=== PATIENT | male | born 1970 | race Caucasian/White ===

== ENCOUNTER → 2022-01-11 | Outpatient (CLI) | payer OTHER ==
--- NOTE | 2022-01-12 05:22 | MR ---
EXAMINATION TYPE: MR pelvis wo/w con DATE OF EXAM: 01/11/2022 COMPARISON: None HISTORY: Left seminal vesical mass. CONTRAST: Standard multiplanar, multisequence MRI departmental protocol images were obtained without contrast a nd with 11 mL intravenous Gadavist gadolinium contrast. Urinary bladder is almost empty. No free fluid in the pelvis. Prostate gland measures 5.1 cm with no discrete mass. There is a conglomeration of cysts in the pelvis on the left side adjacent to the left side of the pr ostate gland that overall measures 5.4 x 7.6 cm. This is at the left-sided seminal vesicles. Seminal vesicles on the right side appear normal and measure 2.2 cm in greatest dimension. No evidence of inguinal hernia. The bony pelvis is intact. Sacrum and coccyx appear normal. Sacroilia c joints appear normal. The proximal femurs and hip joints appear normal. Left and right side vas def erens is visualized and have normal diameter. IMPRESSION: Numerous thin wall enlarged cysts involving the left-sided seminal vesicles. There is conglomeration of cysts. No evidence of any solid component.
== END | disposition home or self-care (01) ==
LOC: RADMRIMAIN 17:33
PROVIDERS: ATTEND Urology
DX: N50.89 Other specified disorders of the male genital organs (principal)
CPT/HCPCS: 72197; A9585

== ENCOUNTER → 2022-03-20 | Outpatient (CLI) | payer OTHER ==
[2022-03-20 22:52] LABS: Basophils # (A) 0.07 X 10*3/uL (0.00-0.10); Basophils % (A) 0.8 %; Eosinophils # (A) 0.09 X 10*3/uL (0.04-0.35); Eosinophils % (A) 1.1 %; HCT 48.5 % (39.6-50.0); HGB 16.6 g/dL (13.0-17.0); Immature Grans, Automated 0.2 %; Lymphocytes # (A) 2.38 X 10*3/uL (0.90-5.00); Lymphocytes % (A) 28.8 %; MCHC 34.2 g/dL (32.0-37.0); MCV 87.7 fL (80.0-97.0); Mean Platelet Volume 10.7 fL (9.5-12.2); Monocytes # (A) 0.77 X 10*3/uL (0.20-1.00); Monocytes % (A) 9.3 %; NRBC Per 100 WBC 0 /100 WBCS (0.0-0.0); Neutrophils # (A) 4.93 X 10*3/uL (1.80-7.70); Neutrophils % (A) 59.8 %; Platelet Count 289 X 10*3/uL (140-440); RBC 5.53 X 10*6/uL (4.40-5.60); RDW 12.4 % (11.5-14.5); WBC 8.26 X 10*3/uL (4.50-10.00)
[2022-03-20 22:53] LABS: African American GFR (CKD) 94.6 (60.0-200.0); Anion Gap 14.7 mmol/L (10.00-18.00); BUN/Creat Ratio 12.31 Ratio (12.00-20.00); Blood Urea Nitrogen 12.8 mg/dL (9.0-27.0); Calcium 9.7 mg/dL (8.7-10.3); Carbon Dioxide 24.2 mmol/L (20.0-27.5); Non-African American GFR(CKD) 81.6 (60.0-200.0)
== END | disposition home or self-care (01) ==
LOC: LABPAT 15:01
PROVIDERS: ATTEND Urology
DX: Z01.818 Encounter for other preprocedural examination (principal); N49.0 Inflammatory disorders of seminal vesicle; N50.89 Other specified disorders of the male genital organs; R53.83 Other fatigue
CPT/HCPCS: 80048; 85025; 93005

== ENCOUNTER 2022-03-24 07:30 | Inpatient (IN) | payer OTHER ==
--- NOTE | 2022-03-29 19:39 | P.GSHP ---
History of Present Illness H&P Date: 03/29/22 Chief Complaint: Pelvic discomfort The patient is a 51-year-old white male with pelvic discomfort, which is predominantly left-sided and increases with activity. 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 Specifically, MRI shows numerous left seminal vesicle cysts measuring 5.4 x 7.6 cm. 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 bulging discs, History of Any Multi-Drug Resistant Organisms: None Reported Additional Past Surgical History / Comment(s): rt wrist arthroscopy, Past Anesthesia/Blood Transfusion Reactions: No Reported Reaction Smoking Status: Former smoker Medications and Allergies Home Medications Medication Instructions Recorded Confirmed Type ALPRAZolam [Xanax] 2 mg PO HS 03/27/22 03/27/22 History amLODIPine 10 mg PO DAILY 03/27/22 03/27/22 History lisinopriL [Prinivil] 10 mg PO DAILY 03/27/22 03/27/22 History Allergies Allergy/AdvReac Type Severity Reaction Status Date / Time No Known Allergies Allergy Verified 03/27/22 10:31 Surgical - Exam - General well developed, well nourished, no distress - Respiratory normal respiratory effort - Abdomen Abdomen: soft, non tender, no guarding, no rigid, no rebound - Genitourinary normal penis with no external lesions, testicles non-tender - Psychiatric oriented to time, oriented to person, oriented to place, speech is normal, memory intact Results - Imaging CT scan - pelvis: report reviewed, image reviewed Assessment and Plan (1) Other specified disorders of the male genital organs Status: Acute Code(s): N50.89 - OTHER SPECIFIED DISORDERS OF THE MALE GENITAL ORGANS SNOMED Code(s): 67375017 Plan: I had a lengthy discussion with the patient, explaining to him that cysts of the seminal vesicles are often associated with ipsilateral renal agenesis and can cause pelvic discomfort as he describes. He has elected to undergo robotic- assisted laparoscopic excision of the left seminal vesicle, performed by Dr. Santos Torres. He has been made aware of potential risks, which include anesthesia, bleeding, infection, bladder injury, and rectal injury. He is also aware of the possibility that his symptoms will fail to improve.
[2022-03-30] MEDS ORDERED: HEPARIN SODIUM,PORCINE/PF 5,000 UNIT/0.5 ML SYRINGE SQ PRN (05:00)
[2022-03-30] MEDS ORDERED: LIDOCAINE 1% (10MG/ML) FOR IV START INTRADERMA PRN (06:14)
[2022-03-30] MEDS ORDERED: ONDANSETRON 4 MG/2 ML VIAL IVP ONE (06:14)
[2022-03-30] MEDS ORDERED: DEXAMETHASONE SOD PHOSPHATE 4 MG/ML 1 ML VIAL IV ONE ×2 (06:14)
[2022-03-30] MEDS: LACTATED RINGERS 1,000 ML IV SCH ×2 (06:21→10:51)
[2022-03-30] MEDS ORDERED: ePHEDrine 50 MG/ML 1 ML VIAL ONE (07:34)
[2022-03-30] MEDS ORDERED: ROCURONIUM 10 MG/ML (5 ML VIAL) IV ONE (07:34)
[2022-03-30] MEDS ORDERED: NEOSTIGMINE 1 MG/ML 10 ML VIAL ONE (07:34)
[2022-03-30] MEDS ORDERED: HYDROmorphone (PF) 1 MG/ML ONE (07:34)
[2022-03-30] MEDS ORDERED: SUCCINYLCHOLINE CHLORIDE 200 MG/10 ML VIAL IV ONE (07:34)
[2022-03-30] MEDS ORDERED: PROPOFOL 10 MG/ML 20 ML VIAL IV ONE (07:34)
[2022-03-30] MEDS ORDERED: GLYCOPYRROLATE 0.2 MG/ML 2 ML VIAL ONE (07:34)
[2022-03-30] MEDS ORDERED: LIDOCAINE 2% INJ 20 MG/ML (2 ML VIAL) ONE (07:34)
[2022-03-30] MEDS ORDERED: MIDAZOLAM 2 MG/2 ML VIAL ONE (07:34)
[2022-03-30] MEDS ORDERED: ESMOLOL 100 MG/10 ML VIAL ONE (07:34)
[2022-03-30] MEDS ORDERED: fentaNYL (PF) 50 MCG/ML 2 ML AMP ONE (07:34)
[2022-03-30] MEDS ORDERED: ONDANSETRON 4 MG/2 ML VIAL IVP PRN (07:42)
[2022-03-30] MEDS ORDERED: ACETAMINOPHEN TAB 325 MG TAB PO PRN (07:42)
[2022-03-30] MEDS ORDERED: BUPIVACAINE (PF) 0.25% 30 ML VIAL SQ ONE ×2 (08:17)
--- NOTE | 2022-03-30 09:07 | P.OP ---
Date of Procedure: 03/30/22 Preoperative Diagnosis: Left seminal vesicle cyst Postoperative Diagnosis: Left seminal vesicle cyst Procedure(s) Performed: Robotic excision of left seminal vesicle cyst Anesthesia: MIREILLE Surgeon: Adri Torres Pathology: other (Left seminal vesicle and cyst) Condition: stable Disposition: PACU Indications for Procedure: The patient was seen in the office for pelvic pain. CT abdomen and pelvis and MRI revealed a 7 cm left seminal vesicle cyst. The patient elected to undergo a robotic excision of seminal vesicle cyst Operative Findings: Large cyst arising from the left seminal vesicle extending laterally to the left pelvic sidewall between the external and internal iliac veins Description of Procedure: This is a patient diagnosed with a large left seminal vesicle cyst. The procedure of robot assisted laparoscopic excision of seminal vesicle cyst was discussed with the patient including the potential risks and complications of the procedure. He elected to proceed with the operation. The patient was placed in a supine, Trendelenberg position with adequate padding of the pressure points, shoulders, back, legs and arms. He was then prepped and draped in the standard fashion. A 18F chappell catheter was placed to gravity drainage. A Veress needle was placed through a warner-umbilical puncture and a pneumo-peritoneum created to 20mmHg during port placement which is thereafter lowered to 15mmHg.A 8 mm port on the left side of the umbilicus was placed for the scope. Next,under vision a 8mm robotic ports was placed lateral to each rectus slightly below the camera port. The right doctor assistant right iliac fossa 12mm port was then placed. The robot was then docked to the 8mm robotic ports and then each robotic arm and tower was checked in relation to the patient's legs and hands to avoid inadvertent compression. The peritoneal cavity was inspected . First sensation was made and the peritoneal fold off the true pelvis. This was deepened down through the subcutaneous tissue. The large left seminal vesicle cyst was immediately identified as a bluish structure. Relatively large arteries were seen coursing over it. These were controlled with bipolar and divided. The cyst was then dissected laterally towards the left pelvic sidewall to identify the apex of the cyst. Once this was identified it was retracted medially and dissection was carried over the inferior surface of the cyst taking care to stay right on the cyst wall to prevent injury to surrounding structures. Multiple seminal vesicle arteries were clipped and divided. Dissection of the seminal vesicle cyst was then continued medially until the vas was identified on the left side. This was divided between clips. An incision was then made in the seminal vesicle cyst and dark brown fluid was evacuated from the seminal vesicle cyst. Approximately 50 mL of fluid was evacuated. There was no evidence of bleeding or infection. Once the cyst was decompressed R dissection was then continued towards the base of the seminal vesicle. Our plan was to tip the base of the seminal vesicle however were once dissection of the system seminal vesicle was completed it was noted that the base of the seminal vesicle was over 2 inches wide. The seminal vesicle and its cyst was then divided at the base and the edges were coagulated to achieve hemostasis. The window in the peritoneum was left open to facilitate transperitoneal absorption of any fluid that might be secreted from the seminal vesicle. The inner lining of the seminal vesicle was fulgurated. The freed specimen was then inspected and placed in an endo-catch specimen retrieval bag. The specimen was removed after enlarging the umbilical port incision as required. The umbilical fascia was closed with PDS suture and closed in layers. All ports were closed with a subcuticular stitch. Sponge, instrument, and needle counts were correct at the end of the case. The patient tolerated the procedure well and was accompanied to the recovery room in stable condition
[2022-03-30] MEDS ORDERED: LACTATED RINGERS 1,000 ML IV ONE (09:11)
[2022-03-30] MEDS: HYDROmorphone 0.5 MG/0.5 ML SYRINGE IVP PRN ×3 (09:31→21:15)
[2022-03-30] MEDS: HYDROmorphone 1 MG/ML 1 ML SYRINGE IVP PRN ×2 (11:41→16:26)
[2022-03-30] MEDS: DEXTROSE 5%-0.45% NACL 1,000 ML IV SCH ×2 (13:44→16:26)
[2022-03-30] MEDS: KETOROLAC 15 MG/ML 1 ML VIAL IVP SCH ×2 (13:46→18:30)
[2022-03-30] MEDS ORDERED: ALPRAZolam 1 MG TAB PO SCH (21:00)
[2022-03-31] MEDS: KETOROLAC 15 MG/ML 1 ML VIAL IVP SCH ×2 (00:23→05:38)
[2022-03-31] MEDS: DEXTROSE 5%-0.45% NACL 1,000 ML IV SCH ×2 (00:24→07:55)
[2022-03-31] MEDS: HYDROmorphone 1 MG/ML 1 ML SYRINGE IVP PRN (06:31)
[2022-03-31 08:11] VITALS: BP 137/84; PULSE 81; RESP 18; TEMP 98
[2022-03-31] MEDS ORDERED: amLODIPine 10 MG TAB PO SCH (09:00)
[2022-03-31] MEDS ORDERED: lisinopriL 10 MG TAB PO SCH (09:00)
[2022-03-31] MEDS ORDERED: SENNOSIDES 8.6 MG TAB PO SCH (09:30)
--- NOTE | 2022-04-01 12:13 | P.DS ---
Providers Date of admission: 03/30/22 05:42 Attending physician: Adri Torres Primary care physician: [place] Hospital Course: This is a 51-year-old male with history of left seminal vesicle cyst. Underwent excision of left seminal vesicle and seminal vesicle cyst by Dr. Torres on March 30. Please see op note dated March 30 for surgery detail. Patient was admitted to the hospital postoperatively. He was discharged home on postop day #1, at time of discharge was tolerating a diet, ambulating, pain was controlled Patient Condition at Discharge: Good Plan - Discharge Summary Discharge Rx Participant: No New Discharge Prescriptions: New Ketorolac [Toradol] 10 mg PO Q6HR PRN #15 tab PRN Reason: Pain Sennosides/Docusate Sodium [Senna-S 8.6-50 mg Tablet] 1 each PO DAILY #7 tablet HYDROcodone/APAP 5-325MG [G[place]a 5-325] 1 tab PO Q6HR PRN 3 Days #12 tab PRN Reason: Pain No Action lisinopriL [Prinivil] 10 mg PO DAILY amLODIPine 10 mg PO DAILY ALPRAZolam [Xanax] 2 mg PO HS Discharge Medication List ALPRAZolam [Xanax] 2 mg PO HS 03/27/22 [History] amLODIPine 10 mg PO DAILY 03/27/22 [History] lisinopriL [Prinivil] 10 mg PO DAILY 03/27/22 [History] HYDROcodone/APAP 5-325MG [G[place]a 5-325] 1 tab PO Q6HR PRN 3 Days #12 tab 03/31/22 [Rx] Ketorolac [Toradol] 10 mg PO Q6HR PRN #15 tab 03/31/22 [Rx] Sennosides/Docusate Sodium [Senna-S 8.6-50 mg Tablet] 1 each PO DAILY #7 tablet 03/31/22 [Rx] Follow up Appointment(s)/Referral(s): Gordo Dorantes MD [STAFF PHYSICIAN] - 04/10/22 2:20 pm Patient Instructions/Handouts: Ketorolac (By mouth), Senna (By mouth), Pelvic Pain in Men (DC) Discharge Disposition: HOME SELF-CARE
== END 2022-03-31 11:53 | disposition home or self-care (01) | DRG 717 ==
LOC: EDSTATUS 07:30 → 2ORMAIN 03-30 05:42 → 4SSUR 03-30 11:04
PROVIDERS: ADMIT Urology; ATTEND Urology
PROC: 8E0W4CZ Robotic Assisted Procedure of Trunk Region, Percutaneous Endoscopic Approach (ICD-10-PCS; principal; 2022-03-30 07:30)
PROC: 0VB Male Reproductive System, Excision (ICD-10-PCS; principal; 2022-03-30 07:30)
DX: N50.89 Other specified disorders of the male genital organs (principal); Q60.0 Renal agenesis, unilateral; I72.3 Aneurysm of iliac artery; Z28.310 Unvaccinated for COVID-19; I10 Essential (primary) hypertension; R30.0 Dysuria; R35.0 Frequency of micturition; Z79.899 Other long term (current) drug therapy; Z87.891 Personal history of nicotine dependence; Z86.73 Personal history of transient ischemic attack (TIA), and cerebral infarction without residual deficits
CPT/HCPCS: 86850; 86900; 86901; 88305; 94760

== ENCOUNTER 2023-10-01 19:02 | Inpatient (IN) | payer MEDICARE, OTHER ==
[2023-10-01 20:06] LABS: Basophils # (A) 0.1 k/uL (0-0.2); Basophils % (A) 1 %; Eosinophils # (A) 0.1 k/uL (0-0.7); Eosinophils % (A) 2 %; HCT 47.6 % (39.0-53.0); HGB 15.4 gm/dL (13.0-17.5); Lymphocytes # (A) 2.1 k/uL (1.0-4.8); Lymphocytes % (A) 29 %; MCH 30.2 pg (25.0-35.0); MCHC 32.4 g/dL (31.0-37.0); MCV 93.1 fL (80.0-100.0); Mean Platelet Volume 7.3; Monocytes # (A) 0.6 k/uL (0-1.0); Monocytes % (A) 8 %; Neutrophils # (A) 4.2 k/uL (1.3-7.7); Neutrophils % (A) 57 %; Platelet Count 231 k/uL (150-450); RBC 5.11 m/uL (4.30-5.90); RDW 12.1 % (11.5-15.5); WBC 7.3 k/uL (3.8-10.6)
[2023-10-01 20:16] LABS: Partial Thromboplastin Time 24.1 sec (22.0-30.0); Prothrombin Time 11.4 sec (10.0-12.5)
[2023-10-01 20:23] LABS: ALT 23 U/L (4-49); AST 23 U/L (17-59); African American GFR (CKD) 67 (>60 ml/min/1.73 sqM); Alkaline Phosphatase 50 U/L (38-126); Anion Gap 4 mmol/L; Blood Urea Nitrogen 32 mg/dL (9-20); Carbon Dioxide 27 mmol/L (22-30); Chloride 107 mmol/L (98-107); Glucose 91 mg/dL (74-99); Magnesium 1.8 mg/dL (1.6-2.3); Non-African American GFR(CKD) 58 (>60 ml/min/1.73 sqM); Potassium 4.3 mmol/L (3.5-5.1); Sodium 138 mmol/L (137-145); Total Bilirubin 0.5 mg/dL (0.2-1.3); Total Protein 6.2 g/dL (6.3-8.2)
--- NOTE | 2023-10-01 20:25 | ED ---
Chest Pain HPI - General Chief Complaint: Chest Pain Stated Complaint: Chest pain Time Seen by Provider: 10/01/23 20:14 Source: patient, RN notes reviewed, old records reviewed Mode of arrival: ambulatory Limitations: no limitations - History of Present Illness Initial Comments: This is a 52-year-old male he presents today for evaluation of chest pain with what he believes is a history of angina and persistent outpatient chest pain here in the ER. Patient is no shortness of breath no diaphoresis no travel history or sick contacts. Patient has history of hypertension and palpitations MD Complaint: chest pain -: days(s) (3) Pain Location: substernal, left chest Pain Radiation: LUE Severity: moderate Severity scale (1-10): 4 Quality: tightness, aching Consistency: constant Improves With: nothing Worsens With: nothing Anginal Symptoms: dyspnea Other Symptoms: palpitations Treatments Prior to Arrival: none - Related Data Home Medications Medication Instructions Recorded Confirmed ALPRAZolam [Xanax] 2 mg PO BID 03/27/22 10/01/23 amLODIPine 10 mg PO DAILY 03/27/22 10/01/23 Baclofen [Lioresal] 20 mg PO BID 10/01/23 10/01/23 Nitroglycerin Sl Tabs [Nitrostat] 0.4 mg SUBLINGUAL Q5M PRN 10/01/23 10/01/23 traZODone HCL 300 mg PO HS 10/01/23 10/01/23 Previous Rx's Medication Instructions Recorded Aspirin 81 mg PO DAILY #90 tab 10/03/23 Atorvastatin [Lipitor] 80 mg PO DAILY #90 tab 10/03/23 Clopidogrel [Plavix] 75 mg PO DAILY #90 tab 10/03/23 Ezetimibe [Zetia] 10 mg PO DAILY #90 tab 10/03/23 Metoprolol Tartrate [Lopressor] 25 mg PO BID #180 tab 10/03/23 Psyllium Husk 100% [Metamucil 6 gm PO DAILY #30 packet 10/03/23 Packet] Allergies Allergy/AdvReac Type Severity Reaction Status Date / Time No Known Allergies Allergy Verified 10/01/23 20:42 Review of Systems ROS Statement: Those systems with pertinent positive or pertinent negative responses have been documented in the HPI. ROS Other: All systems not noted in ROS Statement are negative. 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 bulging discs, History of Any Multi-Drug Resistant Organisms: None Reported Additional Past Surgical History / Comment(s): rt wrist arthroscopy, Past Anesthesia/Blood Transfusion Reactions: No Reported Reaction Past Psychological History: Anxiety Smoking Status: Former smoker Past Alcohol Use History: None Reported Past Drug Use History: None Reported General Exam Limitations: no limitations General appearance: alert, in no apparent distress Head exam: Present: atraumatic, normocephalic, normal inspection Eye exam: Present: normal appearance, PERRL, EOMI. Absent: scleral icterus, conjunctival injection, periorbital swelling ENT exam: Present: normal exam, mucous membranes moist Neck exam: Present: normal inspection. Absent: tenderness, meningismus, lymphad enopathy Respiratory exam: Present: normal lung sounds bilaterally. Absent: respiratory distress, wheezes, rales, rhonchi, stridor Cardiovascular Exam: Present: regular rate, normal rhythm, normal heart sounds. Absent: systolic murmur, diastolic murmur, rubs, gallop, clicks GI/Abdominal exam: Present: soft, normal bowel sounds. Absent: distended, tenderness, guarding, rebound, rigid Extremities exam: Present: normal inspection, full ROM, normal capillary refill. Absent: tenderness, pedal edema, joint swelling, calf tenderness Back exam: Present: normal inspection Neurological exam: Present: alert, oriented X3, CN II-XII intact Psychiatric exam: Present: normal affect, normal mood Skin exam: Present: warm, dry, intact, normal color. Absent: rash Course Vital Signs 10/01/23 10/01/23 10/01/23 19:32 20:35 21:10 Temperature 98.2 F Pulse Rate 76 66 61 Respiratory 18 18 14 Rate Blood Pressure 141/89 141/100 142/94 O2 Sat by Pulse 98 95 97 Oximetry 10/01/23 10/02/23 10/02/23 22:55 00:43 05:20 Temperature Pulse Rate 64 64 63 Respiratory 16 17 18 Rate Blood Pressure 142/97 151/97 120/79 O2 Sat by Pulse 96 97 94 L Oximetry 10/02/23 06:52 Temperature Pulse Rate 66 Respiratory 18 Rate Blood Pressure 120/84 O2 Sat by Pulse 95 Oximetry - Reevaluation(s) Reevaluation #1: 10/01/23 21:47 Medical records reviewed Reevaluation #2: 10/01/23 21:47 Patient symptoms improved Reevaluation #3: 10/01/23 21:47 Patient informed of results questions answered Reevaluation #4: Was pt. sent in by a medical professional or institution (, ANIL[facility], AUTOMATIC PROFILE SHAPER OPERATOR, urgent care, hospital, or halfway...) When possible be specific @ -no Did you speak to anyone other than the patient for history (EMS, parent, family, police, friend...)? What history was obtained from this source @ -no Did you review nursing and triage notes (agree or disagree)? Why? @ -agree Are old charts reviewed (outside hosp., previous admission, EMS record, old EKG, old radiological studies, urgent care reports/EKG's, halfway records)? Report findings @ -yes Differential Diagnosis (chest pain, altered mental status, abdominal pain women, abdominal pain men, vaginal bleeding, weakness, fever, dyspnea, syncope, headache, dizziness, GI bleed, back pain, seizure, CVA, palpatations, mental health, musculoskeletal)? @ -prior EKG interpreted by me (3pts min.). @ -yes X-rays interpreted by me (1pt min.). @ -yes negative for acute disease CT interpreted by me (1pt min.). @ -no U/S interpreted by me (1pt. min.). @ -no What testing was considered but not performed or refused? (CT, X-rays, U/S, labs)? Why? @ -none What meds were considered but not given or refused? Why? @ -none Did you discuss the management of the patient with other professionals (professionals i.e. ANILA Duran, AUTOMATIC PROFILE SHAPER OPERATOR, lab, RT, psych nurse, social media intern, nuclear equipment test engineer, teacher, compliance review officer, residential case manager)? Give summary @ -no Was smoking cessation discussed for >3mins.? @ -no Was critical care preformed (if so, how long)? @ -yes31 Were there social determinants of health that impacted care today? How? (Homelessness, low income, unemployed, alcoholism, drug addiction, transportation, low edu. Level, literacy, decrease access to med. care, shelter, rehab)? @ -none Was there de-escalation of care discussed even if they declined (Discuss DNR or withdrawal of care, Hospice)? DNR status @ -no What co-morbidities impacted this encounter? (DM, HTN, Smoking, COPD, CAD, Cancer, CVA, ARF, Chemo, Hep., AIDS, mental health diagnosis, sleep apnea, morbid obesity)? @ -none Was patient admitted / discharged? Hospital course, mention meds given and route, prescriptions, significant lab abnormalities, going to OR and other pertinent info. @ - 52 male to be admitted for ACS acute chest pain with troponin leak Admitted Undiagnosed new problem with uncertain prognosis? @ -no Drug Therapy requiring intensive monitoring for toxicity (Heparin, Nitro, Insulin, Cardizem)? @ -no Were any procedures done? @ -no Diagnosis/symptom? @ -Chest pain ACS Acute, or Chronic, or Acute on Chronic? @ -Acute Uncomplicated (without systemic symptoms) or Complicated (systemic symptoms)? @ -Complicated Side effects of treatment? @ -no Exacerbation, Progression, or Severe Exacerbation? @ -exacerbation Poses a threat to life or bodily function? How? (Chest pain, USA, DC, pneumonia, PE, COPD, DKA, ARF, appy, cholecystitis, CVA, Diverticulitis, Homicidal, Suicidal, threat to staff... and all critical care pts) @ -yes chest pain Reevaluation #5: Differential Chest Pain: Stable Angina, Unstable Angina, STEMI, NSTEMI Aortic Dissection, Pneumothorax, Musculoskeletal, Esophageal Spasm GERD, Cholecystitis, Pancreatitis, Zoster, this is not meant to be an all-inclusive list. - Consultations Consultation #1: Spoke with Dr. Marcel berkowitz to admit this patient Chest Pain MDM - MDM 52 male to be admitted for ACS acute chest pain with troponin leak Critical Care Time Critical Care Time: Yes Total Critical Care Time: 31 Disposition Clinical Impression: Chest pain, Unstable angina pectoris, ACS (acute coronary syndrome) Disposition: ADMITTED IP TO THIS HOSP Is patient prescribed a controlled substance at d/c from ED?: No Time of Disposition: 21:50
--- NOTE | 2023-10-01 20:59 | XR ---
EXAMINATION TYPE: XR chest 2V DATE OF EXAM: 10/01/2023 COMPARISON: NONE HISTORY: Chest pain TECHNIQUE: Frontal and lateral views of the chest are obtained. FINDINGS: There is no focal air space opacity, pleural effusion, or pneumothorax seen. The cardiac silhouette size is within normal limits. The osseous structures are intact. IMPRESSION: No acute cardiopulmonary process.
[2023-10-01] MEDS ORDERED: MORPHINE SULFATE 4 MG/ML SYRINGE IV PRN (21:42)
[2023-10-01] MEDS ORDERED: NITROGLYCERIN SL TABS 0.4 MG TAB SUBLINGUAL PRN (21:42)
[2023-10-01] MEDS: ASPIRIN 81 MG PO STA (22:39)
[2023-10-01] MEDS: HEPARIN SODIUM 1,000 UN/ML (10ML VL) IV ONE (22:40)
[2023-10-01] MEDS: HEPARIN SOD,PORK IN 0.45% NACL 25,000 UNIT in 0.45% NACL 1 250ML.BAG IV SCH (22:41)
[2023-10-02] MEDS: ALPRAZolam 1 MG TAB PO PRN (00:31)
[2023-10-02] MEDS: traZODone HCL 50 MG TAB PO SCH (00:33)
[2023-10-02] MEDS: traZODone HCL 100 MG TAB PO SCH ×2 (00:41→20:20)
[2023-10-02 04:24] LABS: Mean Platelet Volume 7.5; Platelet Count 203 k/uL (150-450)
[2023-10-02] MEDS: HEPARIN SODIUM 1,000 UN/ML (10ML VL) IV PRN (05:18)
[2023-10-02] MEDS ORDERED: ALPRAZolam 0.5 MG TAB PO PRN (08:15)
[2023-10-02] MEDS ORDERED: ALPRAZolam 0.25 MG TAB PO PRN (08:15)
[2023-10-02] MEDS ORDERED: NITROGLYCERIN SL TABS 0.4 MG TAB SUBLINGUAL PRN (08:15)
[2023-10-02 08:58] LABS: Chol/HDL Ratio 3.19 Ratio; LDL Cholesterol,Calculated 85.8 mg/dL (0.0-131.0)
[2023-10-02] MEDS ORDERED: ASPIRIN 325 MG TAB PO SCH (09:00)
[2023-10-02] MEDS: ATORVASTATIN 80 MG TAB PO STA (09:25)
[2023-10-02] MEDS: METOPROLOL TARTRATE 25 MG TAB PO SCH (09:25)
[2023-10-02] MEDS: SODIUM CHLORIDE 0.9% 1,000 ML in EMPTY BAG 1 BAG IV SCH ×2 (09:25→17:00)
[2023-10-02] MEDS: ASPIRIN 325 MG TAB PO STA (09:25)
[2023-10-02] MEDS: amLODIPine 10 MG TAB PO SCH (09:25)
[2023-10-02] MEDS: ATORVASTATIN 80 MG TAB PO SCH (09:26)
[2023-10-02] MEDS: ASPIRIN 81 MG PO SCH (09:26)
[2023-10-02 09:40] LABS: Glucose,Whole Blood 102 mg/dL (70-110)
--- NOTE | 2023-10-02 09:55 | P.CRDCN ---
History of Present Illness History of present illness: HISTORY OF PRESENT ILLNESS: This is a 52-year-old male with a past medical history significant for hypertension. Patient follows in the office with Dr. Weathers. We have been asked to see the patient in consultation for chest pain. Patient examined at the bedside. Patient presented to the hospital with a chief complaint of chest discomfort. Patient states he has been having chest pain on and off for a while but it has gotten worse over the past few days. He states the pain is in the middle of his chest. He states that yesterday the pain seem to be worse than it had previously which concerned him. He reports feeling mildly lightheaded. He denied any shortness of breath. He does report having palpitations on occasion. He states that he exercises daily without any chest pain or shortness of breath and the chest pain seems to be sporadic and is not exertionally related. Patient did have a CT performed recently at [facility] with a calcium score of 1317. He was unable to have the angiogram completed due to his high calcium score. The patient does report he has lost approximately 100 pounds in the past year due to diet and exercise. He is a non-smoker. DIAGNOSTICS: - EKG reveals sinus mechanism with no signs of acute ischemia. - Chest xray negative for acute process. - Laboratory data: WBC 7.3. Hemoglobin 15.4. Platelet count 231. Sodium 138. Potassium 4.3. BUN 32. Creatinine 1.37. Troponin negative x 3. - Current home cardiac medications include metoprolol succinate 25 mg daily and amlodipine 10 mg daily - Most recent echocardiogram obtained in May 2020 revealed ejection fraction 60%, trace MR, trace TR -Patient underwent Lexiscan stress test in May 2020 which was negative for ischemia REVIEW OF SYSTEMS: At the time of my exam: CONSTITUTIONAL: Denies fever or chills. HEENT: Denies blurred vision, vision changes, or eye pain. Denies hemoptysis CARDIOVASCULAR: Denies chest pain. Denies orthopnea. Denies PND. Denies palpitations RESPIRATORY: Denies shortness of breath. GASTROINTESTINAL: Denies abdominal pain. Denies nausea or vomiting. HEMATOLOGIC: Denies bleeding disorders. GENITOURINARY: Denies any blood in urine. SKIN: Denies pruitis. Denies rash. PHYSICAL EXAM: VITAL SIGNS: Reviewed. GENERAL: Well-developed in no acute distress. HEENT: Head is normocephalic. Pupils are equal, round. Sclerae anicteric. Mucous membranes of the mouth are moist. Neck supple. No JVD or thyromegaly LUNGS: Respirations even and unlabored. Lungs essentially clear to auscultation bilaterally. HEART: Regular rate and rhythm. S1 and S2 heard. Systolic murmur noted ABDOMEN: Soft. Nondistended. Nontender. EXTREMITIES: Normal range of motion. No clubbing or cyanosis. Peripheral pulses intact. No lower extremity edema NEUROLOGIC: Awake and alert. Oriented x 3. ASSESSMENT: Chest pain with recent calcium score of [address] Mild acute kidney injury, creatinine 1.37 on admission Hypertension History of obesity with 100 pound weight loss over the past year, BMI now 29.0 PLAN: An acute coronary event has been ruled out Discontinue IV heparin Resume home cardiac medications Obtain 2D echo to assess cardiac structure and function Patient to undergo cardiac catheterization today with Dr. Weathers Further recommendations pending patient course Nurse practitioner note has been reviewed by physician. Signing provider agrees with the documented findings, assessment, and plan of care documented by DRUG ENFORCEMENT ADMINISTRATION AGENT as a scribe. Past Medical History Past Medical History: CVA/TIA, Hypertension Additional Past Medical History / Comment(s): palpatations in past, saw car diologist no issue now, inconclusive re cva/tia, severe wrist damage 07/2020 undergoing tx currently, lower back L3-5 degeneration. bulging discs, History of Any Multi-Drug Resistant Organisms: None Reported Additional Past Surgical History / Comment(s): rt wrist arthroscopy, Past Anesthesia/Blood Transfusion Reactions: No Reported Reaction Past Psychological History: Anxiety Smoking Status: Former smoker Past Alcohol Use History: None Reported Past Drug Use History: None Reported Medications and Allergies Home Medications Medication Instructions Recorded Confirmed Type ALPRAZolam [Xanax] 2 mg PO BID 03/27/22 10/01/23 History amLODIPine 10 mg PO DAILY 03/27/22 10/01/23 History Baclofen [Lioresal] 20 mg PO BID 10/01/23 10/01/23 History Metoprolol Succinate (ER) [Toprol 25 mg PO DIRECTED 10/01/23 10/01/23 History Xl] Nitroglycerin Sl Tabs [Nitrostat] 0.4 mg SUBLINGUAL Q5M PRN 10/01/23 10/01/23 History traZODone HCL 300 mg PO HS 10/01/23 10/01/23 History Allergies Allergy/AdvReac Type Severity Reaction Status Date / Time No Known Allergies Allergy Verified 10/01/23 20:42 Physical Exam Vitals: Vital Signs Temp Pulse Pulse Resp BP BP Pulse Ox 10/02/23 07:50 98.1 F 66 16 129/79 98 10/02/23 06:52 66 18 120/84 95 10/02/23 05:20 63 18 120/79 94 L 10/02/23 00:43 64 17 151/97 97 10/01/23 22:55 64 16 142/97 96 10/01/23 21:10 61 14 142/94 97 10/01/23 20:35 66 18 141/100 95 10/01/23 19:32 98.2 F 76 18 141/89 98 Intake and Output 10/01/23 10/02/23 10/02/23 22:59 06:59 14:59 Intake Total 64.952 Balance 64.952 Intake: Intake, IV Titration 64.952 Amount Heparin Sod,Pork in 0.45% 64.952 NaCl 25,000 unit In 0.45 % NaCl 1 250ml.bag @ 12 UNITS/KG/HR 10.07 mls/hr IV .Q24H [facility] Rx#: [id number] Other: Weight 83.915 kg Results 10/02/23 03:37 10/01/23 19:51 Cardiac Enzymes 10/01/23 10/01/23 10/01/23 Range/Units 19:51 19:51 22:10 AST 23 (17-59) U/L Troponin I 0.018 0.023 (0.000-0.034) ng/mL 10/02/23 Range/Units 00:28 AST (17-59) U/L Troponin I 0.025 (0.000-0.034) ng/mL Coagulation 10/01/23 10/01/23 10/02/23 Range/Units 19:51 22:10 03:37 PT 11.4 (10.0-12.5) sec APTT 24.1 24.8 42.5 H (22.0-30.0) sec CBC 10/01/23 10/02/23 Range/Units 19:51 03:37 WBC 7.3 (3.8-10.6) k/uL RBC 5.11 (4.30-5.90) m/uL Hgb 15.4 (13.0-17.5) gm/dL Hct 47.6 (39.0-53.0) % Plt Count 231 203 (150-450) k/uL Comprehensive Metabolic Panel 10/01/23 Range/Units 19:51 Sodium 138 (137-145) mmol/L Potassium 4.3 (3.5-5.1) mmol/L Chloride 107 (98-107) mmol/L Carbon Dioxide 27 (22-30) mmol/L BUN 32 H (9-20) mg/dL Creatinine 1.37 H (0.66-1.25) mg/dL Glucose 91 (74-99) mg/dL Calcium 9.0 (8.4-10.2) mg/dL AST 23 (17-59) U/L ALT 23 (4-49) U/L Alkaline Phosphatase 50 (38-126) U/L Total Protein 6.2 L (6.3-8.2) g/dL Albumin 4.0 (3.5-5.0) g/dL Current Medications Generic Name Dose Route Start Last Admin Trade Name Freq PRN Reason Stop Dose Admin Alprazolam 2 mg 10/02/23 00:20 10/02/23 00:31 Alprazolam 1 Mg Tab PO 2 mg BID PRN Administration Anxiety Aspirin 325 mg 10/02/23 09:00 Aspirin 325 Mg Tab PO DAILY [facility] Atorvastatin Calcium 80 mg 10/02/23 09:00 Atorvastatin 80 Mg Tab PO DAILY [facility] Heparin Sodium (Porcine) 0 unit 10/02/23 05:15 10/02/23 05:18 Heparin Sodium 1,000 Un/Ml (10ml Vl) IV 2,100 unit PER PROTOCOL PRN Administration Low PTT Protocol Heparin Sodium/Sodium Chloride 250 mls @ 10.07 mls/hr 10/01/23 21:45 10/02/23 05:08 25,000 unit/ Sodium Chloride IV 14 units/kg/hr .Q24H [facility] 11.748 mls/hr Titration Protocol 12 UNITS/KG/HR Metoprolol Tartrate 25 mg 10/02/23 09:00 Metoprolol Tartrate 25 Mg Tab PO BID [facility] Morphine Sulfate 4 mg 10/01/23 21:42 Morphine Sulfate 4 Mg/Ml Syringe IV Q4HR PRN Chest Pain Nitroglycerin 0.4 mg 10/01/23 21:42 Nitroglycerin Sl Tabs 0.4 Mg Tab SUBLINGUAL Q5M PRN Chest Pain Trazodone HCl 300 mg 10/02/23 00:30 10/02/23 00:41 Trazodone Hcl 100 Mg Tab PO 300 mg HS [facility] Administration Intake and Output 10/01/23 10/02/23 10/02/23 22:59 06:59 14:59 Intake Total 64.952 Balance 64.952 Intake: Intake, IV Titration 64.952 Amount Heparin Sod,Pork in 0.45% 64.952 NaCl 25,000 unit In 0.45 % NaCl 1 250ml.bag @ 12 UNITS/KG/HR 10.07 mls/hr IV .Q24H [facility] Rx#: [id number] Other: Weight 83.915 kg 10/02/23 03:37 10/01/23 19:51
--- NOTE | 2023-10-02 13:40 | CA ---
Transthoracic Echo Report Name: Carlton Shine Age: 52 Gender: M : 1970 Exam Date: 10/02/2023 09:02 Exam Location: [facility] Ht (in): 67 Wt (lb): 185 Ordering Physician: Francisco Yoo DO Attending/Referring Phys: [id number], Fredo Certified Recreational Therapist Rhoda Main, CADY Procedure CPT: Indications: elevTrop Cardiac Hx: Technical Quality: Good Contrast 1: Total Dose (mL): Contrast 2: Total Dose (mL): MEASUREMENTS (Male / Female) Normal Values 2D ECHO LV Diastolic Diameter PLAX 5.1 cm 4.2 - 5.9 / 3.9 - 5.3 cm LV Systolic Diameter PLAX 3.2 cm IVS Diastolic Thickness 1.3 cm 0.6 - 1.0 / 0.6 - 0.9 cm LVPW Diastolic Thickness 1.4 cm 0.6 - 1.0 / 0.6 - 0.9 cm LV Relative Wall Thickness 0.5 RV Internal Dim ED PLAX 3.3 cm LA Systolic Diameter LX 4.0 cm 3.0 - 4.0 / 2.7 - 3.8 cm LA Volume 58.8 cm??? 18 - 58 / 22 - 52 cm??? LA Volume Index 29.2 cm???/m??? 16 - 28 cm???/m??? M-MODE Aortic Root Diameter MM 3.4 cm AV Cusp Separation MM 2.3 cm DOPPLER AV Peak Velocity 135.6 cm/s AV Peak Gradient 7.4 mmHg MV Area PHT 2.8 cm??? Mitral E Point Velocity 79.3 cm/s Mitral A Point Velocity 101.4 cm/s Mitral E to A Ratio 0.8 MV Deceleration Time 275.3 ms TR Peak Velocity 212.6 cm/s TR Peak Gradient 18.1 mmHg Right Ventricular Systolic Press 22.1 mmHg FINDINGS Left Ventricle Left ventricular ejection fraction is estimated at 55-60 %. Left ventricular cavity size normal. Mildly increased septal wall thickness. No obvious regional wall motion abnormalities. Right Ventricle Normal right ventricular size. Right ventricular systolic pressure within normal limits. Right Atrium Normal right atrial size. No right atrial thrombus or mass seen. Left Atrium Mildly increased left atrial volume. No left atrial thrombus or mass present. Mitral Valve Mitral valve thickened. Mild mitral regurgitation. No mitral stenosis. No evidence for mitral valve prolapse. Aortic Valve Trileaflet aortic valve. Aortic valve sclerosis. No aortic stenosis. No aortic regurgitation. Tricuspid Valve Structurally normal tricuspid valve. Mild tricuspid regurgitation. Pulmonic Valve Structurally normal pulmonic valve. No pulmonic regurgitation. Pericardium No pericardial effusion. No pleural effusion. Aorta Normal size aortic root and proximal ascending aorta. CONCLUSIONS 1. Normal ventricle size and systolic function 2. Mild mitral and tricuspid regurgitation with no evidence of pulmonary hypertension Previewed by: Dr. Alisha Burden MD (Electronically Signed) Final Date: 02 October 2023 13:39
[2023-10-02] MEDS ORDERED: LIDOCAINE 1% INJ 10MG/ML (20 ML MDV) ONE (14:31)
[2023-10-02] MEDS ORDERED: VERAPAMIL 2.5 MG/ML 2 ML AMP ONE ×2 (14:31→15:14)
[2023-10-02] MEDS ORDERED: fentaNYL (PF) 50 MCG/ML 2 ML AMP ONE ×2 (14:32→15:17)
[2023-10-02] MEDS ORDERED: HEPARIN SODIUM 1,000 UN/ML (10ML VL) ONE (15:22)
[2023-10-02] MEDS: LIDOCAINE 1% INJ 10MG/ML (5 ML VIAL-PF) SQ ONE (15:31)
[2023-10-02] MEDS: fentaNYL (PF) 50 MCG/1 ML VIAL IVP ONE ×2 (15:31→15:50)
[2023-10-02] MEDS: MIDAZOLAM 2 MG/2 ML VIAL IVP ONE ×2 (15:31→15:50)
[2023-10-02] MEDS: VERAPAMIL SYRINGE (5 MG/10 ML) INTRAARTER ONE (15:33)
[2023-10-02] MEDS: HEPARIN SODIUM 1,000 UN/ML (10ML VL) IVP ONE ×4 (15:35→16:24)
[2023-10-02] MEDS ORDERED: CLOPIDOGREL 75 MG TAB ONE (16:07)
[2023-10-02] MEDS: CLOPIDOGREL 75 MG TAB PO ONE (16:11)
[2023-10-02] MEDS: SODIUM CHLORIDE 0.9% 1,000 ML IV ONE (16:11)
[2023-10-02] MEDS: HEPARIN SODIUM,PORCINE 10,000 UNIT in SODIUM CHLORIDE 0.9% 1,000 ML IRRIGATION ONE (16:11)
[2023-10-02] MEDS: HEPARIN SODIUM,PORCINE (1 ML) 2,500 UNIT in SODIUM CHLORIDE 0.9% 250 ML IRRIGATION ONE (16:12)
[2023-10-02] MEDS: IOPAMIDOL-370 100ML BTL INTRATHECA ONE (16:33)
[2023-10-02] MEDS ORDERED: MAG HYDROX/AL HYDROX/SIMETH 30 ML CUP PO PRN (16:43)
[2023-10-02] MEDS ORDERED: ZOLPIDEM 5 MG TAB PO PRN (16:43)
[2023-10-02] MEDS ORDERED: ATROPINE SULFATE 0.1 MG/ML 10ML SYRINGE IV PRN (16:43)
[2023-10-02] MEDS ORDERED: RX INFO: IV CONTRAST WAS GIVEN 1 EACH MISC MISCELLANE PRN (16:43)
--- NOTE | 2023-10-02 16:43 | P.PRCINT ---
Percutaneous Coronary Int. - Percutaneous Coronary Intervention Percutaneous Coronary Intervention: PROCEDURES PERFORMED: Left heart catheterization, bilateral coronary angiography, ultrasound guided arterial access, iFR of RCA, circumflex, LAD and diagonal 1, PCI proximal diagonal 1 with a 2.0 x 15mm [place] MASSIMO, post dilated with a 2.25mm NC balloon INDICATION: abnormal CT calcium score, unstable angina CONSENT:I have discussed the risks, benefits and alternative therapies for the above-mentioned procedure and for both sedation/analgesia as well as necessary blood product administration, if indicated, as they pertain to this patient. The patient has indicated understanding and acceptance of the risks and pro cedures discussed. PROCEDURE: After the risks, benefits and alternatives of the above mentioned procedure explained in detail with the patient, informed consent was obtained. Patient was taken to the catheterization lab and prepped and draped in usual fashion. Ultrasound guidance was used to assess for arterial access. 1% lidocaine was used to anesthetize the right radial artery. A 6-Fijian sheath was placed in the right radial artery using modified Seldinger technique and ultrasound guidance. Left coronary angiography was performed with a 5-Fijian JL 3.5 catheter and right coronary angiography was performed with a 5-Fijian FR5 catheter in various views. A 5-Fijian FR5 catheter was inserted into the left ventricle and pressure measurements were obtained. the decision was made to perform functional assessment of the RCA, circumflex, LAD and diagonal branch. Using the far 5 catheter, a 0.014 pressure wire was advanced in the proximal RCA normalized. It was then advanced 1 cm distal to the mid RCA lesion and iFR was performed and was normal at 0.94. Heparin was given. A 6-Fijian CLS 3.5 guide was used to engage the left main. A 0.014 pressure wire was advanced in the proximal left main and normalized. He was then advanced 1 cm distal to the circumflex lesion and iFR was noted to be normal at 0.99. Next the pressure wire was redirected into the mid LAD, 1 cm distal to the LAD lesion and iFR was borderline, abnormal at 0.88. Finally the pressure wire was advanced into the diagonal 1 branch and iFR was grossly abnormal 0.7. Therefore the decision was made to perform PCI of the diagonal 1 branch. Predilation was performed with a 2.0 x 8 mm balloon. Next PCI was performed with a 2.0 x 15 mm [place] MASSIMO. The stent was postdilated with a 2.25 mm noncompliant balloon. Final angiograms were performed. Preintervention there was 90% stenosis and EVERARDO-3 flow and postintervention there was less than 10% stenosis and EVERARDO-3 flow. Given contrast threshold a bifurcation lesion LAD lesion was not intervened upon. The right radial sheath was removed and a TR band was placed with hemostasis achieved. The patient tolerated the procedure well. Patient was transported back to the post catheterization holding area in stable condition. Conscious Sedation: Patient was monitored under the direct supervision of myself for conscious sedation using Versed and fentanyl for a total duration of 60 minutes HEMODYNAMICS: aorta: 99/72 LV: 120/12, LVEDP 19 SELECTIVE CORONARY ARTERIOGRAPHY: LEFT MAIN: The left main is a large caliber vessel which bifurcates into the LAD and circumflex. There is no significant stenosis. LEFT ANTERIOR DESCENDING CORONARY ARTERY: LAD is a large caliber vessel which wraps around to the apex. There is mild proximal LAD 20-30% stenosis. Diagonal 1 has a more focal 90% proximal stenosis and otherwise mild luminal irregularities. The mid to distal LAD has tandem 60% in 60-70% stenoses just after a small caliber diagonal 2 branch. Otherwise there are mild luminal irregularities. LEFT CIRCUMFLEX CORONARY ARTERY: Left circumflex is a moderate caliber vessel with a mid 50% circumflex stenosis. RIGHT CORONARY ARTERY: The right coronary artery is a large caliber vessel which gives off a PDA and PLV branch and is the dominant vessel. There is diffuse mid to distal RCA 50-60% stenosis. FINAL IMPRESSION: 1. Multivessel CAD as described above including 50-60% RCA, 50% circumflex, 60- 70% mid LAD and 90% proximal diagonal 1 stenosis 2. Normal iFR RCA, circumflex, borderline abnormal mid LAD, and grossly abnormal diagonal 1 iFR 3. S/p PCI proximal diagonal 1 with a 2.0 x 15mm [place] MASSIMO, post dilated with a 2.25mm NC balloon 4. Mildl elevated left sided filling pressures PLAN: 1. Aggressive risk factor modification per most recent ACC/AHA guidelines. 2. Continue dual antiplatelets with aspirin and Plavix for 12 months 3. Continue medical therapy of mid LAD however if having recurrent angina may consider intervention of mid LAD.
[2023-10-02] MEDS: BACLOFEN 10 MG TAB PO SCH (16:53)
[2023-10-02] MEDS: PSYLLIUM HUSK 100% 6 GM PACKET PO SCH (17:00)
[2023-10-02] MEDS: ALPRAZolam 1 MG TAB PO SCH (17:00)
--- NOTE | 2023-10-02 18:27 | P.HPIM ---
History of Present Illness H&P Date: 10/02/23 Chief Complaint: Chest pain This is a pleasant 52-year-old patient who follows Dr. Chidi Campos. Chronic stable medical conditions include insomnia, herniated disc with lower back pain, intermittent constipation hypertension. Patient said left precordial pain on and off for some time. Much worse in the last 2 days. Not really related to activity. Sometimes good on the left arm. Occasional dizziness. Tired. No perspiration. Admitted for unstable angina Review of systems: GEN.: Tired EYES: None HEENT: None NECK: None RESPIRATORY: None CARDIOVASCULAR: As above e GASTROINTESTINAL: None GENITOURINARY: None MUSCULOSKELETAL: None LYMPHATICS: None HEMATOLOGICAL: None PSYCHIATRY: None NEUROLOGICAL: None Social history: Lives alone. Currently not working. 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 Stopped smoking a year ago. Averaged about a pack a day for 40 years. No alcohol. Physical examination: VITAL SIGNS: 98.1, 66, 16, 129/79, 98% room air GENERAL: BMI 29, reclining bed awake not in distress. EYES: Pupils equal. Conjunctiva chaim l. HEENT: External appearance of nose and ears normal, oral cavity grossly normal. NECK: JVD not raised; masses not palpable. HEART: First and second heart sounds are normal; no edema. LUNGS: Respiratory rate normal; clear to auscultation. ABDOMEN: Soft, nontender, liver spleen not palpable, no masses palpable. PSYCH: Alert and oriented x3; mood and affect chaim l. MUSCULOSKELETAL:No Clubbing/cyanosis;muscles-grossly intact NEUROLOGICAL: Cranial nerves grossly intact; no facial asymmetry, power and sensation grossly intact. LYMPHATICS: No lymph nodes palpable in the axilla and neck INVESTIGATIONS, reviewed in the clinical context: 2D echocardiogram EF 55 to 60%. No wall motion reported September 30: White count 7.3 hemoglobin 15.4 platelets 231 sodium 138 potassium 4.3 BUN 32 creatinine 1.37 Troponin I 0.018, 0.023, 0.025 LDL 85 EKG tracing personally reviewed by me-normal sinus rhythm Chest x-ray film personally reviewed by me-unremarkable Assessment and plan: -Possible unstable angina patient's risk factors include smoking. Hypertension. EKG is normal. Troponins are borderline. Seen by cardiology. For cardiac catheterization. IV heparin -IV heparin monitoring Follow PTT -Possible CKD Check UA. Renal ultrasound. 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 bulging discs, History of Any Multi-Drug Resistant Organisms: None Reported Additional Past Surgical History / Comment(s): rt wrist arthroscopy, Past Anesthesia/Blood Transfusion Reactions: No Reported Reaction Past Psychological History: Anxiety Smoking Status: Former smoker Past Alcohol Use History: None Reported Past Drug Use History: None Reported Medications and Allergies Home Medications Medication Instructions Recorded Confirmed Type ALPRAZolam [Xanax] 2 mg PO BID 03/27/22 10/01/23 History amLODIPine 10 mg PO DAILY 03/27/22 10/01/23 History Baclofen [Lioresal] 20 mg PO BID 10/01/23 10/01/23 History Metoprolol Succinate (ER) [Toprol 25 mg PO DIRECTED 10/01/23 10/01/23 History Xl] Nitroglycerin Sl Tabs [Nitrostat] 0.4 mg SUBLINGUAL Q5M PRN 10/01/23 10/01/23 History traZODone HCL 300 mg PO HS 10/01/23 10/01/23 History Allergies Allergy/AdvReac Type Severity Reaction Status Date / Time No Known Allergies Allergy Verified 10/01/23 20:42 Physical Exam Vitals: Vital Signs Temp Pulse Pulse Resp BP BP Pulse Ox 10/02/23 07:50 98.1 F 66 16 129/79 98 10/02/23 06:52 66 18 120/84 95 10/02/23 05:20 63 18 120/79 94 L 10/02/23 00:43 64 17 151/97 97 10/01/23 22:55 64 16 142/97 96 10/01/23 21:10 61 14 142/94 97 10/01/23 20:35 66 18 141/100 95 10/01/23 19:32 98.2 F 76 18 141/89 98 Intake and Output 10/01/23 10/02/23 10/02/23 22:59 06:59 14:59 Intake Total 64.952 118 Balance 64.952 118 Intake: Intake, IV Titration 64.952 Amount Heparin Sod,Pork in 0.45% 64.952 NaCl 25,000 unit In 0.45 % NaCl 1 250ml.bag @ 12 UNITS/KG/HR 10.07 mls/hr IV .Q24H [facility] Rx#: [id number] Oral 118 Other: Weight 83.915 kg 83.915 kg Results CBC & Chem 7: 10/02/23 03:37 10/01/23 19:51 Labs: Abnormal Lab Results - Last 24 Hours (Table) 10/01/23 10/02/23 Range/Units 19:51 03:37 APTT 42.5 H (22.0-30.0) sec BUN 32 H (9-20) mg/dL Creatinine 1.37 H (0.66-1.25) mg/dL Total Protein 6.2 L (6.3-8.2) g/dL Thrombosis Risk Factor Assmnt - Choose All That Apply Any of the Below Risk Factors Present?: Yes Each Factor Represents 1 point: Age 41-60 years Other Risk Factors: No Thrombosis Risk Factor Assessment Total Risk Factor Score: 1 Thrombosis Risk Factor Assessment Level: Low Risk
--- NOTE | 2023-10-02 20:26 | US ---
EXAMINATION TYPE: US kidneys/renal and bladder DATE OF EXAM: 10/02/2023 COMPARISON: NONE CLINICAL INDICATION: Male, 52 years old with history of Evaluate for CKD; CKD. 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 EXAM MEASUREMENTS: Right Kidney: 15.5 x 6.4 x 7.2 cm Left Kidney: Absent Right Kidney: Enlarged. There are multiple parapelvic cysts are calyceal dilatation is present throug hout measuring up to 2.1 cm. Left Kidney: Absent Bladder: anechoic, wnl as best seen Bilateral Jets seen: Not visualized IMPRESSION: 1. Compensatory hypertrophy of the right kidney given absence of the left. 2. The right kidney shows either multiple parapelvic cysts measuring up to 2.1 cm versus multiple apolinar yceal dilatations throughout. Consider further assessment with contrast-enhanced CT if clinically ind icated.
[2023-10-03 04:14] LABS: B/A1 Ratio 0.54 Ratio (0.35 - 1.00)
[2023-10-03] MEDS ORDERED: HEPARIN SODIUM,PORCINE (1 ML) 2,500 UNIT in SODIUM CHLORIDE 0.9% 250 ML IRRIGATION PRN (07:00)
[2023-10-03] MEDS ORDERED: HEPARIN SODIUM,PORCINE 10,000 UNIT in SODIUM CHLORIDE 0.9% 1,000 ML IRRIGATION PRN (07:00)
[2023-10-03 07:44] VITALS: BP 115/78; PULSE 67; RESP 16; TEMP 97.5
--- NOTE | 2023-10-03 09:14 | P.PN ---
Subjective HISTORY OF PRESENT ILLNESS: This is a 52-year-old male with a past medical history significant for hypertension. Patient follows in the office with Dr. Weathers. We have been asked to see the patient in consultation for chest pain. Patient examined at the bedside. Patient presented to the hospital with a chief complaint of chest discomfort. Patient states he has been having chest pain on and off for a while but it has gotten worse over the past few days. He states the pain is in the middle of his chest. He states that yesterday the pain seem to be worse than it had previously which concerned him. He reports feeling mildly lightheaded. He denied any shortness of breath. He does report having palpitations on occasion. He states that he exercises daily without any chest pain or shortness of breath and the chest pain seems to be sporadic and is not exertionally related. Patient did have a CT performed recently at [facility] with a calcium score of 1317. He was unable to have the angiogram completed due to his high calcium score. The patient does report he has lost approximately 100 pounds in the past year due to diet and exercise. He is a non-smoker. DIAGNOSTICS: - EKG reveals sinus mechanism with no signs of acute ischemia. - Chest xray negative for acute process. - Laboratory data: WBC 7.3. Hemoglobin 15.4. Platelet count 231. Sodium 138. Potassium 4.3. BUN 32. Creatinine 1.37. Troponin negative x 3. - Current home cardiac medications include metoprolol succinate 25 mg daily and amlodipine 10 mg daily - Most recent echocardiogram obtained in May 2020 revealed ejection fraction 60%, trace MR, trace TR -Patient underwent Lexiscan stress test in May 2020 which was negative for ischemia 10/03/2023 Patient is status post cardiac catheterization with Dr. Weathers revealing 50 to 60% RCA, 50% circumflex, 60 to 70% mid LAD and 90% proximal diagonal 1 stenosis. Normal IFR of RCA and circumflex and borderline abnormal mid LAD. Grossly abnormal diagonal 1 IFR. Patient underwent stenting of the proximal diagonal 1. Patient examined this morning at the bedside. Patient denies any chest pain or pressure. He denies any shortness of breath. Right radial cath site with pulse present. Vital signs are stable. PHYSICAL EXAM: VITAL SIGNS: Reviewed. GENERAL: Well-developed in no acute distress. HEENT: Head is normocephalic. Pupils are equal, round. Sclerae anicteric. Mucous membranes of the mouth are moist. Neck supple. No JVD or thyromegaly LUNGS: Respirations even and unlabored. Lungs essentially clear to auscultation bilaterally. HEART: Regular rate and rhythm. S1 and S2 heard. Systolic murmur noted ABDOMEN: Soft. Nondistended. Nontender. EXTREMITIES: Normal range of motion. No clubbing or cyanosis. Peripheral pulses intact. No lower extremity edema NEUROLOGIC: Awake and alert. Oriented x 3. ASSESSMENT: Chest pain with recent calcium score of [address], status post cardiac catheterization revealing multivessel CAD with stenting of the proximal diagonal 1 Mild acute kidney injury, creatinine 1.37 on admission Hypertension History of obesity with 100 pound weight loss over the past year, BMI now 29.0 PLAN: Continue dual antiplatelet therapy with aspirin and Plavix for 12 months Continue high intensity statin. Add Zetia 10 mg daily. LDL goal less than 70 Continue medical therapy of mid LAD. However if having recurrent angina may consider intervention of mid LAD Patient may be discharged home today from a cardiac standpoint He is to follow-up postdischarge with Dr. Weathers Nurse practitioner note has been reviewed by physician. Signing provider agrees with the documented findings, assessment, and plan of care documented by CLINICAL DATA SPECIALIST as a scribe. Objective - Vital Signs Vital signs: Vital Signs Temp 97.5 F L 10/03/23 07:05 Pulse 67 10/03/23 07:05 Resp 16 10/03/23 07:05 BP 115/78 10/03/23 07:05 Pulse Ox 97 10/03/23 07:05 FiO2 Intake & Output 10/02/23 10/03/23 10/03/23 18:59 06:59 18:59 Intake Total 568 118 Balance 568 118 Weight 83.915 kg Intake: IV 450 Oral 118 118 Other: Voiding Method Toilet # Voids 2 1 # Bowel Movements 1 - Labs CBC & Chem 7: 10/02/23 03:37 10/01/23 19:51
[2023-10-03] MEDS: CLOPIDOGREL 75 MG TAB PO SCH (09:59)
[2023-10-03] MEDS: EZETIMIBE 10 MG TAB PO SCH (10:00)
[2023-10-03 10:49] LABS: Platelet Count 204 X 10*3/uL (140-440)
--- NOTE | 2023-10-03 15:54 | P.DS ---
Providers Date of admission: 10/01/23 21:42 Expected date of discharge: 10/03/23 Attending physician: Ervin Rosen Primary care physician: Chidi Campos [facility] Course: Chief Complaint: Chest pain This is a pleasant 52-year-old patient who follows Dr. Chidi Campos. Chronic stable medical conditions include insomnia, herniated disc with lower back pain, intermittent constipation hypertension. Patient said left precordial pain on and off for some time. Much worse in the last 2 days. Not really related to activity. Sometimes good on the left arm. Occasional dizziness. Tired. No perspiration. Admitted for unstable angina October 02: Patient underwent cardiac catheterization yesterday. Patient underwent stenting of the proximal diagonal 1. Body still in cardiac notes. This morning doing well. Cleared by cardiology. Patient having no further symptoms. He will follow-up with his tooth cutter clutch outpatient. Patient does have an abnormal renal ultrasound. Has followed up with Dr. Dorantes in the past. Told him to follow-up with him next week. Discussion and discharge planning more than 35 minutes Social history: Lives alone. Currently not working. 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 Stopped smoking a year ago. Averaged about a pack a day for 40 years. No alcohol. Physical examination: VITAL SIGNS: 97.5, 67, 16, 115 x 78, 97% room air GENERAL: Patient is comfortable EYES: Pupils equal. Conjunctiva chaim l. HEENT: External appearance of nose and ears normal, oral cavity grossly normal. NECK: JVD not raised; masses not palpable. HEART: First and second heart sounds are normal; no edema. LUNGS: Respiratory rate normal; clear to auscultation. ABDOMEN: Soft, nontender, liver spleen not palpable, no masses palpable. PSYCH: Alert and oriented x3; mood and affect chaim l. MUSCULOSKELETAL:No Clubbing/cyanosis;muscles-grossly intact INVESTIGATIONS, reviewed in the clinical context: Renal ultrasound: Right kidney enlarged. Multiple parapelvic cyst and calyceal dilatations. Left kidney absent LDL 85.8 2D echocardiogram EF 55 to 60%. No wall motion reported September 30: White count 7.3 hemoglobin 15.4 platelets 231 sodium 138 potassium 4.3 BUN 32 creatinine 1.37 Troponin I 0.018, 0.023, 0.025 LDL 85 EKG tracing personally reviewed by me-normal sinus rhythm Chest x-ray film personally reviewed by me-unremarkable Assessment and plan: -Unstable angina. Underwent cardiac catheterization -CAD per cardiac catheterization Dr. Weathers revealing 50 to 60% RCA, 50% circumflex, 60 to 70% mid LAD and 90% proximal diagonal 1 stenosis. Normal IFR of RCA and circumflex and borderline abnormal mid LAD. Grossly abnormal diagonal 1 IFR. Patient underwent stenting of the proximal diagonal 1. -Left nephrectomy for prior renal cancer -Right kidney enlarged Follow-up with Dr. Dorantes outpatient -IV heparin monitoring-discontinued Follow PTT -Chronic Hindy disease with left nephrectomy. Some enlargement of right kidney Renal ultrasound noted Follow-up with Dr. 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 bulging discs, History of Any Multi-Drug Resistant Organisms: None Reported Additional Past Surgical History / Comment(s): rt wrist arthroscopy, Past Anesthesia/Blood Transfusion Reactions: No Reported Reaction Past Psychological History: Anxiety Smoking Status: Former smoker Past Alcohol Use History: None Reported Past Drug Use History: None Reported Plan - Discharge Summary Discharge Rx Participant: Yes New Discharge Prescriptions: New Aspirin 81 mg PO DAILY #90 tab Atorvastatin [Lipitor] 80 mg PO DAILY #90 tab Metoprolol Tartrate [Lopressor] 25 mg PO BID #180 tab Clopidogrel [Plavix] 75 mg PO DAILY #90 tab Ezetimibe [Zetia] 10 mg PO DAILY #90 tab Psyllium Husk 100% [Metamucil Packet] 6 gm PO DAILY #30 packet Continue Baclofen [Lioresal] 20 mg PO BID amLODIPine 10 mg PO DAILY ALPRAZolam [Xanax] 2 mg PO BID traZODone HCL 300 mg PO HS Nitroglycerin Sl Tabs [Nitrostat] 0.4 mg SUBLINGUAL Q5M PRN PRN Reason: Chest Pain Discontinued Metoprolol Succinate (ER) [Toprol Xl] 25 mg PO DIRECTED Discharge Medication List ALPRAZolam [Xanax] 2 mg PO BID 03/27/22 [History] amLODIPine 10 mg PO DAILY 12/26/22 [History] Baclofen [Lioresal] 20 mg PO BID 10/01/23 [History] Nitroglycerin Sl Tabs [Nitrostat] 0.4 mg SUBLINGUAL Q5M PRN 10/01/23 [History] traZODone HCL 300 mg PO HS 10/01/23 [History] Aspirin 81 mg PO DAILY #90 tab 10/03/23 [Rx] Atorvastatin [Lipitor] 80 mg PO DAILY #90 tab 10/03/23 [Rx] Clopidogrel [Plavix] 75 mg PO DAILY #90 tab 10/03/23 [Rx] Ezetimibe [Zetia] 10 mg PO DAILY #90 tab 10/03/23 [Rx] Metoprolol Tartrate [Lopressor] 25 mg PO BID #180 tab 10/03/23 [Rx] Psyllium Husk 100% [Metamucil Packet] 6 gm PO DAILY #30 packet 10/03/23 [Rx] Follow up Appointment(s)/Referral(s): Gordo Dorantes MD [STAFF PHYSICIAN] - 2 Weeks Rick Weathers DO [STAFF PHYSICIAN] - 10/11/23 2:30 pm Cihdi Campos MD [Primary Care Provider] - 1-2 days Patient Instructions/Handouts: Coronary Intravascular Stent Placement (GEN), After Radial Heart Catheterization (GEN) Activity/Diet/Wound Care/Special Instructions: Do not submerge right wrist in water, no pools, spas, tubs, dishes, etc. You may leave open to air. No flexing the right wrist, or lifting greater than 5lbs for 5 days. If you notice any bleeding or swelling hold pressure to the sight and go to the nearest ER, do not drive yourself. Follow-up with Dr. Weathers in the office in 1 week. Discharge Disposition: HOME SELF-CARE
== END 2023-10-03 13:10 | disposition home or self-care (01) | DRG 322 ==
LOC: EC 19:02 → 6NMEDSUR 21:42
PROVIDERS: ADMIT Hospitalist; ATTEND Hospitalist
PROC: B2111ZZ Fluoroscopy of Multiple Coronary Arteries using Low Osmolar Contrast (ICD-10-PCS; principal; 2023-10-02 07:30)
PROC: 4A033BC Measurement of Arterial Pressure, Coronary, Percutaneous Approach (ICD-10-PCS; principal; 2023-10-02 07:30)
PROC: 4A023N7 Measurement of Cardiac Sampling and Pressure, Left Heart, Percutaneous Approach (ICD-10-PCS; principal; 2023-10-02 07:30)
PROC: 027034Z Dilation of Coronary Artery, One Artery with Drug-eluting Intraluminal Device, Percutaneous Approach (ICD-10-PCS; principal; 2023-10-02 07:30)
DX: I25.110 Atherosclerotic heart disease of native coronary artery with unstable angina pectoris (principal); N17.9 Acute kidney failure, unspecified; N28.81 Hypertrophy of kidney; K59.09 Other constipation; I12.9 Hypertensive chronic kidney disease with stage 1 through stage 4 chronic kidney disease, or unspecified chronic kidney disease; N18.9 Chronic kidney disease, unspecified; F51.04 Psychophysiologic insomnia; F41.9 Anxiety disorder, unspecified; M51.36 Other intervertebral disc degeneration, lumbar region; M51.26 Other intervertebral disc displacement, lumbar region; Z28.310 Unvaccinated for COVID-19; Z90.5 Acquired absence of kidney; Z85.528 Personal history of other malignant neoplasm of kidney; Z87.891 Personal history of nicotine dependence; Z79.899 Other long term (current) drug therapy; Z86.73 Personal history of transient ischemic attack (TIA), and cerebral infarction without residual deficits
CPT/HCPCS: 36415; 71046; 76770; 80053; 80061; 82172; 83695; 83735; 84484; 85025; 85049; 85610; 85730; 93005; 93306; 93458; 93799; 96365; 96366; 99291

== ENCOUNTER 2023-12-06 08:28 | Day surgery (SDC) | payer MEDICARE, OTHER ==
--- NOTE | 2023-12-05 19:55 | P.GSHP ---
History of Present Illness H&P Date: 12/05/23 Chief Complaint: Right hydronephrosis The patient is a 53-year-old white male with a congenital solitary right kidney. This was discovered in 2021, at which time he was found to have a cystic left seminal vesicle. This was removed via a robotic-assisted laparoscopic approach and was benign. Recent renal ultrasound shows multiple right parapelvic renal cysts versus hydronephrosis. The GFR is 58. He denies hematuria and flank pain. He has elected to undergo cystoscopy with right retrograde pyelogram, possible ureteroscopy and possible ureteral stent insertion to determine whether he has hydronephrosis which could have an adverse effect on his renal function. - Cardiovascular Cardiovascular: Reports high blood pressure - Genitourinary (Male) Genitourinary: Denies dysuria, Denies flank pain, Denies hematuria Past Medical History Past Medical History: Chest Pain / Angina, CVA/TIA, Hyperlipidemia, Hypertension Additional Past Medical History / Comment(s): severe wrist damage 07/2020, lower back L3-5 degeneration bulging discs, chest pain/angina w/ cardiac stent 10/02/23, current bilat. ear infection w/ antibiotics History of Any Multi-Drug Resistant Organisms: None Reported Past Surgical History: Heart Catheterization With Stent Additional Past Surgical History / Comment(s): rt wrist arthroscopy Past Anesthesia/Blood Transfusion Reactions: No Reported Reaction Date of Last Stent Placement:: 10/02/2023 Smoking Status: Former smoker Medications and Allergies Home Medications Medication Instructions Recorded Confirmed Type ALPRAZolam [Xanax] 2 mg PO BID 03/27/22 11/30/23 History amLODIPine 10 mg PO DAILY 03/27/22 11/30/23 History Baclofen [Lioresal] 20 mg PO BID 10/01/23 11/30/23 History Nitroglycerin Sl Tabs [Nitrostat] 0.4 mg SUBLINGUAL Q5M PRN 10/01/23 11/30/23 History traZODone HCL 300 mg PO HS 10/01/23 11/30/23 History Aspirin 81 mg PO DAILY #90 tab 10/03/23 11/30/23 Rx Atorvastatin [Lipitor] 80 mg PO DAILY #90 tab 10/03/23 11/30/23 Rx Clopidogrel [Plavix] 75 mg PO DAILY #90 tab 10/03/23 11/30/23 Rx Ezetimibe [Zetia] 10 mg PO DAILY #90 tab 10/03/23 11/30/23 Rx Metoprolol Tartrate [Lopressor] 25 mg PO BID #180 tab 10/03/23 11/30/23 Rx Psyllium Husk 100% [Metamucil 6 gm PO DAILY #30 packet 10/03/23 11/30/23 Rx Packet] Amoxicillin 875 mg PO Q12HR 11/30/23 11/30/23 History Fluticasone Nasal [place] [Flonase 1 spray INHALATION DAILY 11/30/23 11/30/23 History Nasal [place]] Melatonin [Melatonin ER] 10 mg PO Q48H 11/30/23 11/30/23 History [place]-3/Dha/Epa/Fish Oil [Fish Oil 1 tab PO TID 11/30/23 11/30/23 History 1,000 mg Softgel] Allergies Allergy/AdvReac Type Severity Reaction Status Date / Time No Known Allergies Allergy Verified 11/30/23 15:42 Surgical - Exam - General well developed, well nourished, no distress - Respiratory normal respiratory effort - Abdomen Abdomen: soft, non tender, no guarding, no rigid, no rebound - Genitourinary normal penis with no external lesions, testicles non-tender - Psychiatric oriented to time, oriented to person, oriented to place, speech is normal, memory intact Results - Imaging US - kidney/bladder: report reviewed Assessment and Plan Plan: Cystoscopy, right retrograde pyelogram, possible right ureteroscopy, possible right ureteral stent insertion. The rationale for this approach has been reviewed in detail with the patient. He is aware of risks, which include anesthesia, bleeding, infection, and ureteral injury.
[~2023-12-06 08:28] MED LIST: HYDROmorphone 0.5 MG/0.5 ML SYRINGE IVP PRN
[2023-12-06] MEDS: IV FLUID CONTINUATION 1,000 ML IV ONE (09:08)
[2023-12-06] MEDS: DEXAMETHASONE SOD PHOSPHATE 4 MG/ML 1 ML VIAL IV ONE (09:11)
[2023-12-06] MEDS: ONDANSETRON 4 MG/2 ML VIAL IVP ONE (09:11)
[2023-12-06] MEDS: LACTATED RINGERS 1,000 ML IV SCH (09:11)
[2023-12-06] MEDS ORDERED: LIDOCAINE 1% INJ 10MG/ML (20 ML MDV) ONE (09:59)
[2023-12-06] MEDS ORDERED: PHENYLEPHRINE-0.9% NACL SYG 1,000 MCG/10 ML SYRINGE ONE (09:59)
[2023-12-06] MEDS ORDERED: PROPOFOL 10 MG/ML 20 ML VIAL IV ONE (09:59)
[2023-12-06] MEDS ORDERED: MIDAZOLAM 2 MG/2 ML VIAL ONE (09:59)
[2023-12-06] MEDS ORDERED: fentaNYL (PF) 50 MCG/ML 2 ML AMP ONE (09:59)
[2023-12-06] MEDS ORDERED: GLYCOPYRROLATE 0.2 MG/ML 2 ML VIAL ONE (09:59)
[2023-12-06] MEDS: IOPAMIDOL-370 100ML BTL MISCELLANE ONE ×3 (10:23)
[2023-12-06 11:09] VITALS: TEMP 97.6
[2023-12-06] MEDS: LACTATED RINGERS 1,000 ML IV ONE (11:10)
--- NOTE | 2023-12-06 11:10 | P.OP ---
Date of Procedure: 12/06/23 Preoperative Diagnosis: Right hydronephrosis Postoperative Diagnosis: Right hydronephrosis secondary to UPJ obstruction Procedure(s) Performed: Cystoscopy, right retrograde pyelogram, right ureteroscopy, right ureteral stent insertion Anesthesia: JACOBOA Surgeon: Gordo Dorantes Estimated Blood Loss (ml): 0 IV fluids (ml): 600 Pathology: none sent Condition: stable Disposition: PACU Indications for Procedure: The patient is a 53-year-old white male with a congenital solitary right kidney. This was discovered in 2021, at which time he was found to have a cystic left seminal vesicle. This was removed via a robotic-assisted laparoscopic approach and was benign. Recent renal ultrasound shows multiple right parapelvic renal cysts versus hydronephrosis. The GFR is 58. He denies hematuria and flank pain. He has elected to undergo cystoscopy with right retrograde pyelogram, possible ureteroscopy and possible ureteral stent insertion to determine whether he has hydronephrosis which could have an adverse effect on his renal function. Operative Findings: Right hydronephrosis secondary to UPJ obstruction Description of Procedure: The patient was taken to the operating room and placed in the dorsolithotomy position, with legs supported in Tomer stirrups. The external genitalia was prepped and draped sterilely. The 30 lens was used to introduce the 22-Thai Stortz cystoscopic sheath through the urethra and into the bladder under direct vision. The prostatic urethra showed evidence of mild lateral lobe enlargement. The bladder was examined in its entirety. The right ureteral orifice appeared normal, and clear urine effluxed from it. The left ureteral orifice was not identified and is presumed to be absent. No tumors or foreign bodies were seen. Using a 10 Thai cone-tip catheter, a right retrograde pyelogram was performed. The ureter was normal in its course. The ureter appeared dilated and some areas, though within normal limits. It was difficult to get contrast to pass into the renal pelvis, but when this was ultimately achieved it was evident that there was right hydronephrosis. The right UPJ appeared narrowed and kinked, suggestive of UPJ obstruction due to a crossing vessel. The cystoscope was removed, and the A[facility]I semirigid ureteroscope was advanced into the bladder. The right ureteral orifice was cannulated, and the ureteroscope was slowly advanced under direct vision, as there was some concern of a possible narrowing within the right distal ureter. None was seen, though the ureter was diminished in caliber at the level of the iliac vessels and could not be advanced beyond this point. A 0.035 inch Glidewire was passed through the ureteroscope, which was then removed. A 6 Thai open-ended catheter was passed over the wire, up to the right renal pelvis. Contrast was injected, confirming the presence of hydronephrosis. Contrast did drain into the ureter, though drainage appeared impaired. The open-ended catheter was then withdrawn i nto the right proximal ureter, and additional contrast was injected to better delineate the anatomy of the UPJ. The Glidewire was then passed through the open-ended catheter, which was removed, and the Glidewire was backloaded into the cystoscope, which was passed into the bladder. A 24 cm, 6-Thai double-J ureteral stent was placed over the wire. Proper stent positioning was verified fluoroscopically and endoscopically. The bladder was emptied and the cystoscope removed. The patient tolerated the procedure well and was taken to the recovery room in stable condition.
[2023-12-06] MEDS: ACETAMINOPHEN TAB 500 MG TAB PO STA (12:29)
[2023-12-06 12:33] VITALS: BP 140/81; PULSE 53; RESP 16
--- NOTE | 2024-01-03 10:35 | FL ---
EXAMINATION TYPE: FL urography retrograde DATE OF EXAM: 12/06/2023 11:09 AM COMPARISON: Pre Operative Images if available both CT/MRI or plain film CLINICAL INDICATION: Male, 53 years old with history of URETEROSCOPY RETROGRADE; TECHNIQUE: FL urography retrograde, multiple fluoroscopic images provided for procedure. Total fluoroscopy time: 121.8 seconds Total submitted images to PACS: 16 DAP: 1.14 mGym2 Gycm2 uGym2 cGycm2 or equivalent. FINDINGS: Fluoroscopic images during retrograde pyelogram demonstrate contrast in the renal collecting system. There is dilation of the collecting system. No evidence of extravasation of contrast. No immediate co mplication identified. IMPRESSION: 1. No evidence for intraoperative complication. 2. Please see the operative/procedural note for further details. [facility], , 01/03/2024 10:33 AM
== END 2023-12-06 12:40 | disposition home or self-care (01) ==
LOC: OR 08:28
PROVIDERS: ATTEND Urology
DX: N13.0 Hydronephrosis with ureteropelvic junction obstruction (principal); E78.5 Hyperlipidemia, unspecified; I10 Essential (primary) hypertension; F41.9 Anxiety disorder, unspecified; M54.50 Low back pain, unspecified; I25.10 Atherosclerotic heart disease of native coronary artery without angina pectoris; Z86.73 Personal history of transient ischemic attack (TIA), and cerebral infarction without residual deficits; Z87.891 Personal history of nicotine dependence; Z95.5 Presence of coronary angioplasty implant and graft; Z79.899 Other long term (current) drug therapy; Z79.82 Long term (current) use of aspirin; Z79.01 Long term (current) use of anticoagulants; Z79.02 Long term (current) use of antithrombotics/antiplatelets
CPT/HCPCS: 74420

== ENCOUNTER 2023-12-08 09:25 | Emergency (ER) | payer MEDICARE, OTHER ==
--- NOTE | 2023-12-08 10:32 | ED ---
General Adult HPI - General Chief complaint: Urogenital Stated complaint: post op comp-pelvic pain Time Seen by Provider: 12/08/23 09:35 Source: patient, RN notes reviewed, old records reviewed Mode of arrival: ambulatory Limitations: no limitations - History of Present Illness Initial comments: There is a 53-year-old male who presents to the emergency department complaining of right-sided pelvic pain. Patient states he had a stent placed by Dr. Dorantes 2 days ago. Patient states he went home over the lawn and the next day got up went on his elliptical and lifted weights. Patient states after that he had right-sided pain with quite a bit of hematuria. Patient denies any back pain. Patient [place] any fever chills. Patient states he did not realize he was not supposed to be active after stent placement. - Related Data Home Medications Medication Instructions Recorded Confirmed ALPRAZolam [Xanax] 2 mg PO BID 03/27/22 12/06/23 amLODIPine 10 mg PO DAILY 03/27/22 12/06/23 Baclofen [Lioresal] 20 mg PO BID 10/01/23 12/06/23 Nitroglycerin Sl Tabs [Nitrostat] 0.4 mg SUBLINGUAL Q5M PRN 10/01/23 12/06/23 traZODone HCL 300 mg PO HS 10/01/23 12/06/23 Amoxicillin 875 mg PO Q12HR 11/30/23 12/06/23 Fluticasone Nasal [place] [Flonase 1 spray INHALATION DAILY 11/30/23 12/06/23 Nasal [place]] Melatonin [Melatonin ER] 10 mg PO Q48H 11/30/23 12/06/23 [place]-3/Dha/Epa/Fish Oil [Fish Oil 1 tab PO TID 11/30/23 12/06/23 1,000 mg Softgel] Previous Rx's Medication Instructions Recorded Aspirin 81 mg PO DAILY #90 tab 10/03/23 Atorvastatin [Lipitor] 80 mg PO DAILY #90 tab 10/03/23 Clopidogrel [Plavix] 75 mg PO DAILY #90 tab 10/03/23 Ezetimibe [Zetia] 10 mg PO DAILY #90 tab 10/03/23 Metoprolol Tartrate [Lopressor] 25 mg PO BID #180 tab 10/03/23 Psyllium [place] 100% [Metamucil 6 gm PO DAILY #30 packet 10/03/23 Packet] Ketorolac [Toradol] 10 mg PO Q8HR #15 tab 12/08/23 Allergies Allergy/AdvReac Type Severity Reaction Status Date / Time No Known Allergies Allergy Verified 12/08/23 09:29 Review of Systems ROS Statement: Those systems with pertinent positive or pertinent negative responses have been documented in the HPI. ROS Other: All systems not noted in ROS Statement are negative. 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 ear infection w/ antibiotics History of Any Multi-Drug Resistant Organisms: None Reported Past Surgical History: Heart Catheterization With Stent Additional Past Surgical History / Comment(s): rt wrist arthroscopy Past Anesthesia/Blood Transfusion Reactions: No Reported Reaction Date of Last Stent Placement:: 10/02/2023 Past Psychological History: Anxiety Smoking Status: Former smoker Past Alcohol Use History: None Reported Past Drug Use History: None Reported General Exam - General Exam Comments Initial Comments: GENERAL: Patient is well-developed and well-nourished. Patient is nontoxic and well- hydrated and is in mild distress. ENT: Neck is soft and supple. No significant lymphadenopathy is noted. Oropharynx is clear. Moist mucous membranes. Neck has full range of motion without eliciting any pain. EYES: The sclera were anicteric and conjunctiva were pink and moist. Extraocular movements were intact and pupils were equal round and reactive to light. Eyelids were unremarkable. PULMONARY: Unlabored respirations. Good breath sounds bilaterally. No audible rales rhonchi or wheezing was noted. CARDIOVASCULAR: There is a regular rate and rhythm without any murmurs gallops or rubs. ABDOMEN: Patient has some mild right lower quadrant tenderness. SKIN: Skin is clear with no lesions or rashes and otherwise unremarkable. NEUROLOGIC: Patient is alert and oriented x3. Cranial nerves II through XII are grossly intact. Motor and sensory are also intact. Normal speech, volume and content. Symmetrical smile. MUSCULOSKELETAL: Normal extremities with adequate strength and full range of motion. LYMPHATICS: No significant lymphadenopathy is noted PSYCHIATRIC: Normal psychiatric evaluation. Limitations: no limitations Course Vital Signs 12/08/23 09:26 Temperature 98.5 F Pulse Rate 62 Respiratory 20 Rate Blood Pressure 159/91 O2 Sat by Pulse 96 Oximetry Medical Decision Making - Medical Decision Making Was pt. sent in by a medical professional or institution (ANILA Duran, PROJECT DEVELOPMENT MANAGER, urgent care, hospital, or intermediate...) When possible be specific @ -No Did you speak to anyone other than the patient for history (EMS, parent, family, police, friend...)? What history was obtained from this source @ -No Did you review nursing and triage notes (agree or disagree)? Why? @ -I reviewed and agree with nursing and triage notes Were old charts reviewed (outside hosp., previous admission, EMS record, old EKG, old radiological studies, urgent care reports/EKG's, intermediate records)? Report findings @ -No old charts were reviewed Differential Diagnosis? @ -Differential Abdominal Pain Men: Appendicitis, cholecystitis, diverticulosis, ischemic bowel, pancreatitis, hepatitis, UTI, gastroenteritis, AAA, incarcerated hernia, bowel obstruction, constipation, inflammatory bowel, hepatitis, peptic ulcer disease, splenic infarction, perforated viscus, testicular torsion, this is not meant to be an all-inclusive list EKG interpreted by me (3pts min.). @ -As above X-rays interpreted by me (1pt min.). @ -None done CT interpreted by me (1pt min.). @ -None done U/S interpreted by me (1pt. min.). @ -None done What testing was considered but not performed or refused? (CT, X-rays, U/S, labs)? Why? @ -None What meds were considered but not given or refused? Why? @ -None Did you discuss the management of the patient with other professionals (professionals i.e. ANILA Duran, PROJECT DEVELOPMENT MANAGER, lab, RT, psych nurse, healthcare social worker, shirt operator, teacher, diplomatic officer, pillowcase folder)? Give summary @ -No Was smoking cessation discussed for >3mins.? @ -No Was critical care preformed (if so, how long)? @ -No Were there social determinants of health that impacted care today? How? (Homelessness, low income, unemployed, alcoholism, drug addiction, transportation, low edu. Level, literacy, decrease access to med. care, assisted, rehab)? @ -No Was there de-escalation of care discussed even if they declined (Discuss DNR or withdrawal of care, Hospice)? DNR status @ -No What co-morbidities impacted this encounter? (DM, HTN, Smoking, COPD, CAD, Cancer, CVA, ARF, Chemo, Hep., AIDS, mental health diagnosis, sleep apnea, morbid obesity)? @ -None Was patient admitted / discharged? Hospital course, mention meds given and route, prescriptions, significant lab abnormalities, going to OR and other pertinent info. @ -Patient was given Toradol and Dilaudid in the emergency department was feeling much better. Patient's lab work came back within normal range. Spoke with Dr. Mancini he agreed the patient could go home on Toradol and I will send the patient home on Toradol for pain. Patient will be instructed to rest over the next few days. Undiagnosed new problem with uncertain prognosis? @ -No Drug Therapy requiring intensive monitoring for toxicity (Heparin, Nitro, Insulin, Cardizem)? @ -No Were any procedures done? @ -No Diagnosis/symptom? @ -Hematuria Acute, or Chronic, or Acute on Chronic? @ -Acute Uncomplicated (without systemic symptoms) or Complicated (systemic symptoms)? @ -Complicated Side effects of treatment? @ -No Exacerbation, Progression, or Severe Exacerbation? @ -No Poses a threat to life or bodily function? How? (Chest pain, [place], [place], pneumonia, PE, COPD, DKA, ARF, appy, cholecystitis, CVA, Diverticulitis, Homicidal, Suicidal, threat to staff... and all critical care pts) @ -No Diagnosis/symptom? @ -Postsurgical pain Acute, or Chronic, or Acute on Chronic? @ -Acute Uncomplicated (without systemic symptoms) or Complicated (systemic symptoms)? @ -Complicated Side effects of treatment? @ -None Exacerbation, Progression, or Severe Exacerbation] @ -No Poses a threat to life or bodily function? @ -No - Lab Data Result diagrams: 12/08/23 10:42 12/08/23 10:42 Lab Results 12/08/23 12/08/23 12/08/23 Range/Units 10:42 10:42 10:42 WBC 12.0 H (3.8-10.6) k/uL RBC 4.53 (4.30-5.90) m/uL Hgb 14.2 (13.0-17.5) gm/dL Hct 41.5 (39.0-53.0) % MCV 91.7 (80.0-100.0) fL MCH 31.3 (25.0-35.0) pg MCHC 34.1 (31.0-37.0) g/dL RDW 12.8 (11.5-15.5) % Plt Count 209 (150-450) k/uL MPV 7.1 Neutrophils % 81 % Lymphocytes % 9 % Monocytes % 7 % Eosinophils % 1 % Basophils % 1 % Neutrophils # 9.7 H (1.3-7.7) k/uL Lymphocytes # 1.1 (1.0-4.8) k/uL Monocytes # 0.9 (0-1.0) k/uL Eosinophils # 0.2 (0-0.7) k/uL Basophils # 0.1 (0-0.2) k/uL Sodium 137 (137-145) mmol/L Potassium 4.0 (3.5-5.1) mmol/L Chloride 110 H (98-107) mmol/L Carbon Dioxide 25 (22-30) mmol/L Anion Gap 2 mmol/L BUN 23 H (9-20) mg/dL Creatinine 1.01 (0.66-1.25) mg/dL Est GFR (CKD-EPI)AfAm >90 (>60 ml/min/1.73 sqM) Est GFR (CKD-EPI)NonAf 84 (>60 ml/min/1.73 sqM) Glucose 125 H (74-99) mg/dL Calcium 9.1 (8.4-10.2) mg/dL Total Bilirubin 0.6 (0.2-1.3) mg/dL AST 32 (17-59) U/L ALT 32 (4-49) U/L Alkaline Phosphatase 49 (38-126) U/L Total Protein 5.9 L (6.3-8.2) g/dL Albumin 3.6 (3.5-5.0) g/dL Urine Color Dark Red Urine Appearance Cloudy (Clear) Urine RBC >182 H (0-5) /hpf Urine Mucus Rare H (None) /hpf Disposition Clinical Impression: Hematuria, Postoperative pain Disposition: HOME SELF-CARE Instructions (If sedation given, give patient instructions): Hematuria (ED) Additional Instructions: Patient should rest. Patient should take Toradol as prescribed Prescriptions: Ketorolac [Toradol] 10 mg PO Q8HR #15 tab Is patient prescribed a controlled substance at d/c from ED?: No Referrals: Chidi Campos MD [Primary Care Provider] - 1-2 days Time of Disposition: 12:13
[2023-12-08] MEDS: SODIUM CHLORIDE 0.9% 1,000 ML IV ONE (10:52)
[2023-12-08] MEDS: KETOROLAC 15 MG/ML 1 ML VIAL IVP STA (10:52)
[2023-12-08] MEDS: HYDROmorphone 0.5 MG/0.5 ML SYRINGE IVP STA (10:53)
[2023-12-08 11:09] LABS: Basophils # (A) 0.1 k/uL (0-0.2); Basophils % (A) 1 %; Eosinophils # (A) 0.2 k/uL (0-0.7); Eosinophils % (A) 1 %; HCT 41.5 % (39.0-53.0); HGB 14.2 gm/dL (13.0-17.5); Lymphocytes # (A) 1.1 k/uL (1.0-4.8); Lymphocytes % (A) 9 %; MCH 31.3 pg (25.0-35.0); MCHC 34.1 g/dL (31.0-37.0); MCV 91.7 fL (80.0-100.0); Mean Platelet Volume 7.1; Monocytes # (A) 0.9 k/uL (0-1.0); Monocytes % (A) 7 %; Neutrophils # (A) 9.7 k/uL (1.3-7.7); Neutrophils % (A) 81 %; Platelet Count 209 k/uL (150-450); RBC 4.53 m/uL (4.30-5.90); RDW 12.8 % (11.5-15.5)
[2023-12-08 11:10] LABS: Appearance,Urine Cloudy (Clear); Color,Urine Dark Red
[2023-12-08 11:14] LABS: Mucus,Urine Rare /hpf; RBC,Urine >182 /hpf (0-5)
[2023-12-08 11:36] LABS: ALT 32 U/L (4-49); AST 32 U/L (17-59); African American GFR (CKD) >90 (>60 ml/min/1.73 sqM); Albumin 3.6 g/dL (3.5-5.0); Alkaline Phosphatase 49 U/L (38-126); Blood Urea Nitrogen 23 mg/dL (9-20); Calcium 9.1 mg/dL (8.4-10.2); Carbon Dioxide 25 mmol/L (22-30); Glucose 125 mg/dL (74-99); Non-African American GFR(CKD) 84 (>60 ml/min/1.73 sqM); Total Bilirubin 0.6 mg/dL (0.2-1.3); Total Protein 5.9 g/dL (6.3-8.2)
[2023-12-08 11:49] LABS: Anion Gap 2 mmol/L; Chloride 110 mmol/L (98-107); Sodium 137 mmol/L (137-145)
[2023-12-08 12:55] VITALS: BP 149/88; PULSE 58; RESP 18; TEMP 98.6
== END 2023-12-08 12:35 | disposition home or self-care (01) ==
LOC: EC 09:25
CPT/HCPCS: 36415; 51798; 80053; 81001; 85025; 96361; 96374; 96375; 99283

== ENCOUNTER 2023-12-16 19:54 | Emergency (ER) | payer MEDICARE, OTHER ==
[2023-12-16 20:02] VITALS: TEMP 98.1
[2023-12-16 21:44] LABS: Appearance,Urine Clear (Clear); Bilirubin,Urine Negative (Negative); Blood,Urine Large (Negative); Color,Urine Light Yellow; Glucose,Urine (UA) Negative (Negative); Ketones,Urine Negative (Negative); Leukocyte Esterase,Urine Small (Negative); Mucus,Urine Rare /hpf; Nitrite,Urine Negative (Negative); PH, Urine 5.5 (5.0-8.0); Protein,Urine Trace (Negative); RBC,Urine >182 /hpf (0-5); Specific Gravity,Urine 1.018 (1.001-1.035); Urobilinogen,Urine <2.0 mg/dL (<2.0); WBC,Urine 7 /hpf (0-5)
--- NOTE | 2023-12-16 21:46 | ED ---
Male Urogenital HPI - General Chief complaint: Urogenital Stated complaint: Urogential Time Seen by Provider: 12/16/23 20:10 Source: patient, RN notes reviewed Mode of arrival: ambulatory Limitations: no limitations - History of Present Illness Initial comments: 53-year-old male presents emergency department chief complaint of urinary retention. Patient states that he had a ureteral stent placed 12/06/2023 due to a complication with his.. Patient states that over the past 2 days he felt like he has had difficulty urinating and suprapubic abdominal pain. Denies fevers, chills, nausea, vomiting. States that the urine has been admitted. Patient has an appointment scheduled with his urologist and October. No other acute complaints at this time. - Related Data Home Medications Medication Instructions Recorded Confirmed ALPRAZolam [Xanax] 2 mg PO BID 03/27/22 12/06/23 amLODIPine 10 mg PO DAILY 03/27/22 12/06/23 Baclofen [Lioresal] 20 mg PO BID 10/01/23 12/06/23 Nitroglycerin Sl Tabs [Nitrostat] 0.4 mg SUBLINGUAL Q5M PRN 10/01/23 12/06/23 traZODone HCL 300 mg PO HS 10/01/23 12/06/23 Amoxicillin 875 mg PO Q12HR 11/30/23 12/06/23 Fluticasone Nasal [place] [Flonase 1 spray INHALATION DAILY 11/30/23 12/06/23 Nasal [place]] Melatonin [Melatonin ER] 10 mg PO Q48H 11/30/23 12/06/23 [place]-3/Dha/Epa/Fish Oil [Fish Oil 1 tab PO TID 11/30/23 12/06/23 1,000 mg Softgel] Previous Rx's Medication Instructions Recorded Aspirin 81 mg PO DAILY #90 tab 10/03/23 Atorvastatin [Lipitor] 80 mg PO DAILY #90 tab 10/03/23 Clopidogrel [Plavix] 75 mg PO DAILY #90 tab 10/03/23 Ezetimibe [Zetia] 10 mg PO DAILY #90 tab 10/03/23 Metoprolol Tartrate [Lopressor] 25 mg PO BID #180 tab 10/03/23 Psyllium [place] 100% [Metamucil 6 gm PO DAILY #30 packet 10/03/23 Packet] Ketorolac [Toradol] 10 mg PO Q8HR #15 tab 12/08/23 Ketorolac [Toradol] 10 mg PO Q8HR #15 tab 12/16/23 Allergies Allergy/AdvReac Type Severity Reaction Status Date / Time No Known Allergies Allergy Verified 12/16/23 20:02 Review of Systems ROS Statement: Those systems with pertinent positive or pertinent negative responses have been documented in the HPI. ROS Other: All systems not noted in ROS Statement are negative. 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 ear infection w/ antibiotics History of Any Multi-Drug Resistant Organisms: None Reported Past Surgical History: Heart Catheterization With Stent Additional Past Surgical History / Comment(s): rt wrist arthroscopy Past Anesthesia/Blood Transfusion Reactions: No Reported Reaction Date of Last Stent Placement:: 10/02/2023 Past Psychological History: Anxiety Smoking Status: Former smoker Past Alcohol Use History: None Reported Past Drug Use History: None Reported General Exam Limitations: no limitations General appearance: alert, in no apparent distress Head exam: Present: atraumatic, normocephalic, normal inspection Eye exam: Present: normal appearance, PERRL, EOMI. Absent: scleral icterus, conjunctival injection, periorbital swelling Neck exam: Present: normal inspection. Absent: tenderness, meningismus, lymphadenopathy Respiratory exam: Present: normal lung sounds bilaterally. Absent: respiratory distress, wheezes, rales, rhonchi, stridor Cardiovascular Exam: Present: regular rate, normal rhythm, normal heart sounds. Absent: systolic murmur, diastolic murmur, rubs, gallop, clicks GI/Abdominal exam: Present: soft, normal bowel sounds. Absent: distended, tenderness, guarding, rebound, rigid Extremities exam: Present: normal inspection, full ROM, normal capillary refill. Absent: tenderness, pedal edema, joint swelling, calf tenderness Back exam: Present: normal inspection Skin exam: Present: warm, dry, intact, normal color. Absent: rash Course Vital Signs 12/16/23 12/16/23 19:59 23:05 Temperature 98.1 F Pulse Rate 67 76 Respiratory 16 20 Rate Blood Pressure 165/92 126/74 O2 Sat by Pulse 96 98 Oximetry Medical Decision Making - Medical Decision Making Was pt. sent in by a medical professional or institution (, ANILA, BUSINESS INTEGRATION MANAGER, urgent care, hospital, or halfway...) When possible be specific @ -No Did you speak to anyone other than the patient for history (EMS, parent, family, police, friend...)? What history was obtained from this source @ -No Did you review nursing and triage notes (agree or disagree)? Why? @ -I reviewed and agree with nursing and triage notes Were old charts reviewed (outside hosp., previous admission, EMS record, old EKG, old radiological studies, urgent care reports/EKG's, halfway records)? Report findings @ -No old charts were reviewed Differential Diagnosis (chest pain, altered mental status, abdominal pain women, abdominal pain men, vaginal bleeding, weakness, fever, dyspnea, syncope, headache, dizziness, GI bleed, back pain, seizure, CVA, palpatations, mental health, musculoskeletal)? @ -Differential Abdominal Pain Men: Appendicitis, cholecystitis, diverticulosis, ischemic bowel, pancreatitis, hepatitis, UTI, gastroenteritis, AAA, incarcerated hernia, bowel obstruction, constipation, inflammatory bowel, hepatitis, peptic ulcer disease, splenic infarction, perforated viscus, testicular torsion, this is not meant to be an all-inclusive list EKG interpreted by me (3pts min.). @ -None X-rays interpreted by me (1pt min.). @ -None done CT interpreted by me (1pt min.). @ -None done U/S interpreted by me (1pt. min.). @ -None done What testing was considered but not performed or refused? (CT, X-rays, U/S, labs)? Why? @ -None What meds were considered but not given or refused? Why? @ -None Did you discuss the management of the patient with other professionals (professionals i.e. ANILA Duran, BUSINESS INTEGRATION MANAGER, lab, RT, psych nurse, healthcare social worker, zipper setter, teacher, commercial escrow officer, continuous pillowcase cutter)? Give summary @ -No Was smoking cessation discussed for >3mins.? @ -No Was critical care preformed (if so, how long)? @ -No Were there social determinants of health that impacted care today? How? (Homelessness, low income, unemployed, alcoholism, drug addiction, transportation, low edu. Level, literacy, decrease access to med. care, [facility], rehab)? @ -No Was there de-escalation of care discussed even if they declined (Discuss DNR or withdrawal of care, Hospice)? DNR status @ -No What co-morbidities impacted this encounter? (DM, HTN, Smoking, COPD, CAD, Cancer, CVA, ARF, Chemo, Hep., AIDS, mental health diagnosis, sleep apnea, morbid obesity)? @ -None Was patient admitted / discharged? Hospital course, mention meds given and route, prescriptions, significant lab abnormalities, going to OR and other pertinent info. @ -Discharged. 53-year-old male with urinary retention. On patient's evaluation is resting comfortably no signs acute distress. Vitals are stable. Initial bladder scan reveals a level of over 700 cc of urine. After patient's urination bladder scan was completed which revealed 7 cc of urine. Patient was able to urinate by himself with no urinary catheter placed. Urine remarkable for blood, no signs of infection. Patient is stable for discharge at this time and recommend that he follows up next week with his urologist for further evaluation. All questions answered at bedside and strict return parameters alona with the patient is verbalized understanding. Discussed with Dr. Bowman Undiagnosed new problem with uncertain prognosis? @ -No Drug Therapy requiring intensive monitoring for toxicity (Heparin, Nitro, Insulin, Cardizem)? @ -No Were any procedures done? @ -No Diagnosis/symptom? @ -hematuria Acute, or Chronic, or Acute on Chronic? @ -Acute Uncomplicated (without systemic symptoms) or Complicated (systemic symptoms)? @ -Uncomplicated Side effects of treatment? @ -No Exacerbation, Progression, or Severe Exacerbation? @ -No Poses a threat to life or bodily function? How? (Chest pain, [place], [place], pneumonia, PE, COPD, DKA, ARF, appy, cholecystitis, CVA, Diverticulitis, Homicidal, Suicidal, threat to staff... and all critical care pts) @ -No - Lab Data Lab Results 12/16/23 Range/Units 20:55 Urine Color Light Yellow Urine Appearance Clear (Clear) Urine pH 5.5 (5.0-8.0) Ur Specific [place] 1.018 (1.001-1.035) Urine Protein Trace H (Negative) Urine Glucose (UA) Negative (Negative) Urine Ketones Negative (Negative) Urine Blood Large H (Negative) Urine Nitrite Negative (Negative) Urine Bilirubin Negative (Negative) Urine Urobilinogen <2.0 (<2.0) mg/dL Ur Leukocyte Esterase Small H (Negative) Urine RBC >182 H (0-5) /hpf Urine WBC 7 H (0-5) /hpf Urine Mucus Rare H (None) /hpf Disposition Clinical Impression: Hematuria Disposition: HOME SELF-CARE Condition: Good Instructions (If sedation given, give patient instructions): Hematuria (ED) Additional Instructions: Return emergency department for any new or worsening symptoms. Recommend they follow-up with your urologist this week for further evaluation. Prescriptions: Ketorolac [Toradol] 10 mg PO Q8HR #15 tab Is patient prescribed a controlled substance at d/c from ED?: No Referrals: Chidi Campos MD [Primary Care Provider] - 1-2 days Time of Disposition: 22:33
[2023-12-16] MEDS: KETOROLAC 15 MG/ML 1 ML VIAL IM STA (22:57)
[2023-12-16 23:07] VITALS: BP 126/74; PULSE 76; RESP 20
== END 2023-12-16 23:09 | disposition home or self-care (01) ==
LOC: EC 19:54
CPT/HCPCS: 81001; 96372; 99283

== ENCOUNTER → 2024-02-04 | Outpatient (CLI) | payer MEDICARE, OTHER ==
[2024-02-04 10:33] VITALS: BP 113/72; PULSE 53; RESP 16; TEMP 97.1
--- NOTE | 2024-02-04 14:35 | P.PAINPG ---
PQRS Measure Charge Sheet Comment: HISTORY OF PRESENT ILLNESS: A 53 yr old male as a referral from Dr Campos presents today w severe and chronic LBP > 1 yr secondary to radiculopathy, spondylosis and facet arthropathy without myelopathy for evaluation. Pt states pain level is provoked at 7 /10 in intensity, constant, localized in the lumbar spine, predominantly axial, throbbing in character w occasional shooting pain towards the hips, buttocks and LEs. Pain is provoked by bending. Pain is alleviated by PT x 6 wks which ended in 2021, physician guided home exercises 4-5 weekly since 2021, heat, medications, topical, repositioning and rest . Pt was a patient of Dr Sosa for LESIs and pain medications but states he does not want to see that physician. PMH: OA, Angina, CVA, Hyperlipidemia, HTN, CKD, Anxiety PSH: R Hydronephrosis w Cystoscopy (2023), Cardiac Catheterization w Stents (2023), R Wrist Arthroscopy (2020) SH: Former tobacco user, No ETOH abuse, No illicit drug use FH: Non contributory All: See list Meds: See list REVIEW OF ORGAN SYSTEMS: CONSTITUTIONAL: No fevers or chills. No recent weight los s. NEUROLOGICAL: + numbness and tingling along the distal extremities. No seizure disorders or headaches. MUSCULOSKELETAL: + pain PSYCHIATRIC: Denies current depression or suicidal thoughts. Physical Examinations : Constitutional : Cooperative , not in acute distress . Neurologic : Cranial nerve II to XII intact. No focal neurological deficits. Psychiatric : alert & oriented x 3. Matching mood & appropriate affect. Judgment & insight intact. Musculoskeletal : Cervical Spine Motor strength in the deltoid and biceps: Normal right side. Normal Left side Motor strength biceps and the wrist ex tensors: Normal right side . Normal left side Motor strength in the triceps muscle: Normal right side. Normal left side Deep tendon reflexes: Normal at the biceps. Normal at Brachioradialis. Normal at triceps Vertebral body tenderness to deep palpation over Cervical facet loading test: positive bilaterally Spurling test: positive bilaterally Neck distraction test: positive bilaterally Tian sign: positive bilaterally Lumbar spine Motor strength lower extremities ,thigh and legs 5/5 Right side , 5/5 Left side Deep tendon reflexes : Normal Knee Jerk. Normal Ankle Jerk Vertebral body tenderness over L4 Vyas Test positive L4-L5 Lumbar facet Loading Test: positive Right / positive Left Range of motion of the lumbar spine Flexion 30 degrees, extension 10 degrees Straight Leg Raise test: Left/ Right positive at degrees Tasha test: positive right / positive left. Severe tenderness over the Sacroiliac joint on the Right / Left sides Gaenslen test: positive bilaterally Seated flexion test: positive bilaterally. Sacral spine : Severe tenderness over the Sacroiliac joint: right side / left side Range of motion: Flexion of the lumbar spine <60 degrees Range of motion: Extension of the lumbar spine <20 degrees Gaenslen's Test positive Tasha test: positive right side / left side Thigh Thrust Test Sacral Thrust Test Imaging: MRI non contrast lumbar spine from Mar 2022 reviewed on pt's device. Awaiting report. Assessment/ Plan : L3-L4/ L4-L5/ L5-S1 radiculopathy Recommendation of ABY L4-L5 #1. Risks, benefits of procedure discussed and patient verbalized understanding. Admits to anti- coagulant use or medical history of diabetes. Protocol for discontinuation/ continuation of medications warner procedure discussed. Valium 5mg #2 for 1hr prior to procedure. Use, side effects, adverse reactions, safe storage discussed. Pt acknowledged understanding. All questions answered. I have spent greater than 30 minutes on patient care today. Dr Chapa was available by phone for the evaluation of this patient. The time was used to review the medical records including relevant urine studies and Prescription history (MAPs), review of the available imaging, evaluation and examination of the patient, coordination of care with the medical staff and if applicable referring physicians, as well as creation of the medical record - Pain Location Bilateral Lower Back Non-Pharmacological Interventions: Heat, Ice, Inactivity, Position/Reposition Home Medications: Ambulatory Orders ALPRAZolam [Xanax] 2 mg PO BID 03/27/22 amLODIPine 10 mg PO DAILY 03/27/22 Baclofen [Lioresal] 20 mg PO BID 10/01/23 Nitroglycerin Sl Tabs [Nitrostat] 0.4 mg SUBLINGUAL Q5M PRN 10/01/23 traZODone HCL 300 mg PO HS 10/01/23 Aspirin 81 mg PO DAILY #90 tab 10/03/23 Atorvastatin [Lipitor] 80 mg PO DAILY #90 tab 10/03/23 Clopidogrel [Plavix] 75 mg PO DAILY #90 tab 07/03/24 Ezetimibe [Zetia] 10 mg PO DAILY #90 tab 10/03/23 Metoprolol Tartrate [Lopressor] 25 mg PO BID #180 tab 10/03/23 Psyllium [place] 100% [Metamucil Packet] 6 gm PO DAILY #30 packet 10/03/23 Amoxicillin 875 mg PO Q12HR 11/30/23 Fluticasone Nasal [place] [Flonase Nasal [place]] 1 spray INHALATION DAILY 11/30/23 Melatonin [Melatonin ER] 10 mg PO Q48H 11/30/23 [place]-3/Dha/Epa/Fish Oil [Fish Oil 1,000 mg Softgel] 1 tab PO TID 11/30/23 Ketorolac [Toradol] 10 mg PO Q8HR #15 tab 12/08/23 Ketorolac [Toradol] 10 mg PO Q8HR #15 tab 12/16/23 diazePAM [Valium] 5 mg PO DAILY PRN 1 Days #2 tab 02/04/24 Controlled Substance Measures - Controlled Substance Measures Is patient prescribed a controlled substance at discharge?: Yes When asked, does pt state using other controlled substances?: Yes If prescribed controlled substance>3 days was MAPS reviewed?: Prescribed <3 Days
== END ==
LOC: PNWHC3 09:59
PROVIDERS: ATTEND Specialist
DX: M54.17 Radiculopathy, lumbosacral region (principal); Z87.891 Personal history of nicotine dependence
CPT/HCPCS: 99211

== ENCOUNTER → 2024-02-22 | Outpatient (CLI) | payer MEDICARE, OTHER ==
--- NOTE | 2024-02-22 13:18 | CT ---
EXAMINATION TYPE: CT abdomen wo con CT DLP: 618 mGycm, Automated exposure control for dose reduction was used. DATE OF EXAM: 02/22/2024 1:00 PM COMPARISON: Renal ultrasound 10/02/2023, fluoroscopic urography retrograde 12/06/2023 CLINICAL INDICATION:Male, 53 years old with history of NO CONTRAST OF ANY KIND; N13.30 rt hydronephro sis; Pre-surgical planning for hydronephrosis of right kidney. TECHNIQUE: Standard CT of the abdomen without IV or oral contrast. Lack of IV or oral contrast limi ts evaluation of solid and hollow organ viscera. Coronal and sagittal reformats were performed. FINDINGS: LOWER CHEST: The visualized lung bases are clear. Coronary artery calcifications. ABDOMEN LIVER: Unremarkable noncontrast appearance. GALLBLADDER AND BILE DUCTS: Unremarkable noncontrast appearance PANCREAS: Unremarkable noncontrast appearance SPLEEN: Unremarkable noncontrast appearance ADRENAL GLANDS: Unremarkable noncontrast appearance. KIDNEYS AND URETERS: Left kidney is absent. Reported congenitally absent. Mild right hydronephrosis with ureteral stent identified. The ureteral stent appears to migrated inferiorly with the most proxi mal part identified within the upper ureter and the distal part within the urinary bladder. No right renal calculi. STOMACH AND BOWEL: Stomach and duodenum are unremarkable.No focal bowel wall thickening or surroundin g inflammatory changes. No evidence of bowel obstruction. PERITONEUM: No evidence of pneumoperitoneum or free fluid. VASCULATURE: Mild atherosclerotic calcifications are present throughout the abdominal aorta and its b ranches. No evidence of aortic aneurysm. MUSCULOSKELETAL: No acute osseous abnormalities LYMPH NODES: No gross evidence for lymphadenopathy. SOFT TISSUE/ABDOMINAL WALL: Unremarkable IMPRESSION: 1. Mild right hydronephrosis with ureteral stent identified. The stent appears to migrated inferiorl y with the most proximal portion within the upper ureter. 2. Congenitally absent left kidney. [facility], , 02/22/2024 1:16 PM
== END | disposition home or self-care (01) ==
LOC: RADCTMAIN 12:31
PROVIDERS: ATTEND Urology
DX: N13.30 Unspecified hydronephrosis (principal); Q60.0 Renal agenesis, unilateral; I70.0 Atherosclerosis of aorta; Z01.818 Encounter for other preprocedural examination
CPT/HCPCS: 74150

== ENCOUNTER → 2024-04-11 | Outpatient (CLI) | payer MEDICARE, OTHER ==
[~2024-04-11] MED LIST changes: +FUROSEMIDE 10 MG/ML 2 ML VIAL IV ONE; -HYDROmorphone 0.5 MG/0.5 ML SYRINGE IVP PRN
--- NOTE | 2024-04-13 23:24 | NM ---
EXAMINATION TYPE: NM Lasix renogram DATE OF EXAM: 04/11/2024 COMPARISON: CT abdomen February 22, 2024 CLINICAL INDICATION: Male, 53 years old with history of Mag 3; N13.30 RIGHT HYDRONEPHROSIS; Following administration of 10.2 mCi Tc 99m MAG3 with 20mg Lasix. Immediate images post injection FINDINGS: Left kidney is congenitally absent. Max renal flow right: 4 minutes. Satisfactory accumulation of radiotracer within the right collecting system. After the administration of Lasix, there is prompt excretion from right collecting system. T 1/2 left: NA minutes. T 1/2 right: 19.2 minutes. IMPRESSION: Adequately functioning unilateral right kidney. [facility], , 04/13/2024 11:21 PM
== END | disposition home or self-care (01) ==
LOC: RADNMMAIN 12:39
PROVIDERS: ATTEND Urology
DX: N13.30 Unspecified hydronephrosis (principal)
CPT/HCPCS: 78708; A9562

== ENCOUNTER → 2024-05-30 | Outpatient (CLI) | payer MEDICARE, OTHER ==
[2024-05-30 18:17] LABS: HCT 45.4 % (39.6-50.0); HGB 15.1 g/dL (13.0-17.0); MCH 30.3 pg (27.0-32.0); MCHC 33.3 g/dL (32.0-37.0); MCV 91.2 FL (80.0-97.0); Mean Platelet Volume 10.2 FL (9.5-12.2); NRBC Per 100 WBC 0 X 10*3/uL (0.00-0.01); Platelet Count 232 X 10*3/uL (140-440); RBC 4.98 X 10*6/uL (4.40-5.60); RDW 12.2 % (11.5-14.5); WBC 6.35 X 10*3/uL (4.50-10.00)
[2024-05-30 18:24] LABS: Blood Urea Nitrogen 19.1 mg/dL (9.0-27.0); Carbon Dioxide 25.3 mmol/L (21.6-31.8); Chloride 104 mmol/L (96-109); Potassium 4.4 mmol/L (3.5-5.5); Sodium 140 mmol/L (135-145)
== END | disposition home or self-care (01) ==
LOC: LABPAT 14:01
PROVIDERS: ATTEND Internal Medicine
DX: Z01.812 Encounter for preprocedural laboratory examination (principal); R94.39 Abnormal result of other cardiovascular function study
CPT/HCPCS: 80051; 82565; 84520; 85027

== ENCOUNTER 2024-06-02 10:09 | Day surgery (SDC) | payer MEDICARE, OTHER ==
[2024-05-30 15:12] VITALS: BMI 30.4
[~2024-06-02 10:09] MED LIST changes: +ALPRAZolam 0.25 MG TAB PO PRN; +ALPRAZolam 0.5 MG TAB PO PRN; +ATORVASTATIN 80 MG TAB PO ONE; -FUROSEMIDE 10 MG/ML 2 ML VIAL IV ONE; +HEPARIN SODIUM,PORCINE (1 ML) 2,500 UNIT in SODIUM CHLORIDE 0.9% 250 ML IRRIGATION PRN; +HEPARIN SODIUM,PORCINE 10,000 UNIT in SODIUM CHLORIDE 0.9% 1,000 ML IRRIGATION PRN; +NITROGLYCERIN SL TABS 0.4 MG TAB SUBLINGUAL PRN
[2024-06-02] MEDS: ASPIRIN 325 MG TAB PO ONE (10:26)
[2024-06-02] MEDS: SODIUM CHLORIDE 0.9% 1,000 ML in EMPTY BAG 1 BAG IV SCH (10:26)
[2024-06-02] MEDS: IV FLUID CONTINUATION 1,000 ML IV ONE (10:26)
[2024-06-02 10:37] VITALS: RESP 16; TEMP 98.7
[2024-06-02] MEDS: HYDROcodone/APAP 5-325MG 1 EACH TAB PO PRN (10:42)
[2024-06-02] MEDS: MIDAZOLAM 2 MG/2 ML VIAL IVP ONE ×2 (12:41→12:46)
[2024-06-02] MEDS: fentaNYL (PF) 50 MCG/ML 2 ML AMP IVP ONE (12:43)
[2024-06-02] MEDS: LIDOCAINE 1% INJ 10MG/ML (20 ML MDV) SQ ONE (12:46)
[2024-06-02] MEDS: VERAPAMIL SYRINGE (5 MG/10 ML) INTRAARTER ONE (12:48)
[2024-06-02] MEDS: ADENOSINE 90 MG in SODIUM CHLORIDE 0.9% 60 ML IVP ONE (13:28)
[2024-06-02] MEDS: IOPAMIDOL-370 100ML BTL INJ ONE ×2 (13:42→13:53)
[2024-06-02] MEDS: NITROGLYCERIN 1000MCG/10ML SYRINGE INTRACORON ONE (13:49)
[2024-06-02] MEDS ORDERED: ZOLPIDEM 5 MG TAB PO PRN (14:01)
[2024-06-02] MEDS ORDERED: MAG HYDROX/AL HYDROX/SIMETH 30 ML CUP PO PRN (14:01)
[2024-06-02] MEDS ORDERED: ATROPINE SULFATE 0.1 MG/ML 10ML SYRINGE IV PRN (14:01)
[2024-06-02] MEDS ORDERED: RX INFO: IV CONTRAST WAS GIVEN 1 EACH MISC MISCELLANE PRN (14:01)
[2024-06-02] MEDS ORDERED: SODIUM CHLORIDE 0.9% 1,000 ML in EMPTY BAG 1 BAG IV SCH (14:15)
--- NOTE | 2024-06-02 14:52 | P.PRCINT ---
Percutaneous Coronary Int. - Percutaneous Coronary Intervention Percutaneous Coronary Intervention: PROCEDURES PERFORMED: Left heart catheterization, bilateral coronary angiography, ultrasound guided arterial access, iFR RCA, LAD, FFR LAD, PCI mid LAD with a 3.0 x 28mm Xience MASSIMO, post dilated with a 3.5mm NC balloon, IVUS LAD INDICATION: Abnormal stress test with inferoapical ischemia, increasing NYHA class 3 angina CONSENT:I have discussed the risks, benefits and alternative therapies for the above-mentioned procedure and for both sedation/analgesia as well as necessary blood product administration, if indicated, as they pertain to this patient. The patient has indicated understanding and acceptance of the risks and procedures discussed. PROCEDURE: After the risks, benefits and alternatives of the above mentioned procedure explained in detail with the patient, informed consent was obtained. Patient was taken to the catheterization lab and prepped and draped in usual fashion. Ultrasound guidance was used to assess for arterial access. 1% lidocaine was used to anesthetize the right radial artery. A 6-Y[place]i sheath was placed in the right radial artery using modified Seldinger technique and ultrasound guidance. Left coronary angiography was performed with a 5-Y[place]i JL 3.5 catheter and right coronary angiography was performed with a 5-Yemeni FR5 catheter in various views. A 5-Yemeni FR5 catheter was inserted into the left ventricle and pressure measurements were obtained. Angiograms appeared relatively similar to prior and therefore functional assessment was recommended. Heparin was given. Using the FR 5 catheter, a 0.014 pressure wire was advanced into the proximal RCA and normalized. It was then advanced into the mid to distal RCA and iFR was performed and was normal at 0.99. Next a 6 [place]i CLS 3.5 guide was used to engage the left main. The 0.014 pressure wire was advanced to the left main and normalized. It was then advanced into the mid to distal LAD. Initial iFR was 0.92 however had significant drift. Therefore this was repeated and was 0.9 without drift. G iven ischemia in the inferior apical region explained by the LAD further assessment with FFR was indicated. FFR was performed and was quickly abnormal at 0.77 and adenosine infusion was stopped. Therefore decision was made to perform PCI. Balloon angioplasty was performed with a 3.0 x 12 mm balloon. Next intravascular ultrasound was performed which showed an aneurysmal portion of the mid LAD and distal to this reference vessel 3.5 mm and the further distal segment 3.0 mm. Next a 3.0 x 28 mm drug-eluting stent was placed from the aneurysmal portion to the mid to distal LAD. There was jailing of a small caliber diagonal 2 branch however this was already had significant disease with 100% stenosis and there was still EVERARDO-3 flow in the proximal segment. Repeat intravascular ultrasound showed some underexpansion of the stent and therefore the stent was postdilated with a 3.5 mm noncompliant balloon. Repeat intravascular ultrasound showed excellent stent apposition with no dissection. Final angiograms were performed. Preintervention there was 70% stenosis and EVERARDO-3 flow and postintervention there was less than 10% stenosis with EVERARD[place]-3 flow. The right radial sheath was removed and a TR band was placed with hemostasis achieved. The patient tolerated the procedure well. Patient was transported back to the post catheterization holding area in stable condition. Conscious Sedation: Patient was monitored under the direct supervision of myself for conscious sedation using Versed and fentanyl for a total duration of 78 minutes HEMODYNAMICS: Aorta: 121/81 LV: 120/2, LVEDP 7 SELECTIVE CORONARY ARTERIOGRAPHY: LEFT MAIN: The left main is a large caliber vessel which bifurcates into the LAD and circumflex. There is no significant stenosis. LEFT ANTERIOR DESCENDING CORONARY ARTERY: LAD is a large caliber vessel which wraps around to the apex. There is proximal LAD 30 to 40% stenosis. Diagonal 1 is moderate caliber and has a patent proximal stent. Diagonal 2 is small caliber and has subtotal occlusion of the mid segment. Just after diagonal 2 branch there is a 70% mid LAD stenosis. LEFT CIRCUMFLEX CORONARY ARTERY: Left circumflex is a moderate caliber vessel with 20 to 30% diffuse stenosis. RIGHT CORONARY ARTERY: The right coronary artery is a large caliber vessel which gives off a PDA and PLV branch and is the dominant vessel. There is diffuse entire proximal to distal RCA with 30 to 40% stenosis and a number of tandem 50 to 60% stenoses. FINAL IMPRESSION: 1. CAD as described above including 30 to 40% proximal LAD, subtotal occlusion diagonal 2, 70% mid LAD, 20 to 30% circumflex, 50 to 60% RCA stenosis 2. Low normal left sided filling pressures 3. iFR RCA normal 4. FFR LAD abnormal 5. Status post PCI mid LAD with a 3.0 x 28mm Xience MASSIMO, post dilated with a 3.5mm NC balloon PLAN: 1. Aggressive risk factor modification per most recent ACC/AHA guidelines. 2. Continue dual antiplatelets with aspirin and Plavix for 6 months.
[2024-06-02 17:40] VITALS: BP 123/72; PULSE 66
[2024-06-02] MEDS ORDERED: BACLOFEN 10 MG TAB PO SCH (21:00)
[2024-06-02] MEDS ORDERED: MELATONIN 5 MG TABLET PO SCH (21:00)
[2024-06-02] MEDS ORDERED: ALPRAZolam 1 MG TAB PO SCH (21:00)
[2024-06-02] MEDS ORDERED: METOPROLOL TARTRATE 25 MG TAB PO SCH (21:00)
[2024-06-02] MEDS ORDERED: traZODone HCL 100 MG TAB PO SCH (21:00)
[2024-06-03] MEDS ORDERED: EZETIMIBE 10 MG TAB PO SCH (09:00)
[2024-06-03] MEDS ORDERED: amLODIPine 10 MG TAB PO SCH (09:00)
[2024-06-03] MEDS ORDERED: ATORVASTATIN 80 MG TAB PO SCH (09:00)
[2024-06-03] MEDS ORDERED: CLOPIDOGREL 75 MG TAB PO SCH (09:00)
[2024-06-03] MEDS ORDERED: DOCUSATE 100 MG CAP PO SCH (09:00)
== END 2024-06-02 17:42 | disposition home or self-care (01) ==
LOC: CATHCVL 10:09 → 6NMEDSUR 14:02 → CATHCVL 17:42
PROVIDERS: ATTEND Internal Medicine
DX: I25.119 Atherosclerotic heart disease of native coronary artery with unspecified angina pectoris (principal); R94.39 Abnormal result of other cardiovascular function study; Z95.5 Presence of coronary angioplasty implant and graft; Z79.02 Long term (current) use of antithrombotics/antiplatelets
CPT/HCPCS: 93571; 92978; 93458; 93799; C9600; C1769 ×2; C1894; C1725 ×2; C1753; C1874; C1887; J2250; J2003; J3010; J0153; J1644; Q9967; J2305

== ENCOUNTER → 2024-06-13 | Outpatient (CLI) | payer MEDICARE, OTHER ==
--- NOTE | 2024-06-13 15:52 | US ---
EXAMINATION TYPE: US kidneys/renal and bladder DATE OF EXAM: 06/13/2024 COMPARISON: CT 02/22/24 CLINICAL INDICATION: Male, 53 years old with history of N13.2 HYDRONEPHROSIS; follow up, stent remove d 1 month ago TECHNIQUE: Grayscale imaging of the bilateral kidneys and urinary bladder: FINDINGS: EXAM MEASUREMENTS: Right Kidney: 16x6.2x6.8 cm Left Kidney: congenitally absent Right Kidney: compensatory hypertrophy, mild hydronephrosis Left Kidney: congenitally absent Bladder: wnl Bilateral Jets seen: right jet visualized, absent right kidney There is no evidence for hydronephrosis at this point in time. No nephrolithiasis is seen. No josephine s are identified. The urinary bladder is anechoic. slightly limited by bowel gas and habitus IMPRESSION: 1. Mild right hydronephrosis. Similar to prior CT. 2. Congenitally absent left kidney is flattened appearance of the adrenal gland on prior CT 02/20/20 24. [facility], , 06/13/2024 3:50 PM
== END | disposition home or self-care (01) ==
LOC: RADUSWWP 15:16
PROVIDERS: ATTEND Urology
DX: N13.30 Unspecified hydronephrosis (principal); Z90.5 Acquired absence of kidney
CPT/HCPCS: 76770

== ENCOUNTER 2024-07-01 10:56 | Observation (INO) | payer MEDICARE, OTHER ==
[2024-07-01] MEDS ORDERED: ACETAMINOPHEN TAB 325 MG TAB PO PRN (10:57)
[2024-07-01] MEDS ORDERED: NALOXONE 0.4 MG/ML 1 ML VIAL IV PRN (10:57)
[2024-07-01] MEDS ORDERED: HEPARIN SODIUM 1,000 UN/ML (10ML VL) IV PRN (11:05)
--- NOTE | 2024-07-01 11:15 | ED ---
General Adult HPI - General Stated complaint: chest pain Time Seen by Provider: 07/01/24 10:57 Source: patient, RN notes reviewed, old records reviewed - History of Present Illness Initial comments: 53-year-old male, transfer from outside hospital for evaluation of chest pain. Patient has known CAD. He was seen at outside hospital, had normal EKG and negative troponin was sent for concern for unstable angina and repeat cardiac testing including consultation with his semaphore operator. Patient had recent stenting performed at this facility. No diaphoresis. No nausea or vomiting. - Related Data Home Medications Medication Instructions Recorded Confirmed ALPRAZolam [Xanax] 2 mg PO BID 03/27/22 07/01/24 amLODIPine 10 mg PO DAILY 03/27/22 07/01/24 Baclofen [Lioresal] 20 mg PO BID PRN 10/01/23 07/01/24 traZODone HCL 300 mg PO HS 10/01/23 07/01/24 [place]-3/Dha/Epa/Fish Oil [Fish Oil 1 cap PO DAILY 11/30/23 07/01/24 1,000 mg Softgel] Linaclotide [Linzess] 145 mcg PO DAILY 05/30/24 07/01/24 Multivitamins, Thera [Multivitamin 1 tab PO DAILY 05/30/24 07/01/24 (formulary)] Aspirin EC [Ecotrin Low Dose] 81 mg PO DAILY 07/01/24 07/01/24 Docusate [Colace] 100 mg PO DAILY PRN 07/01/24 07/01/24 HYDROcodone/APAP 5-325MG [[place] 1 tab PO BID PRN 07/01/24 07/01/24 5-325] Tamsulosin [Flomax] 0.4 mg PO DAILY 07/01/24 07/01/24 Previous Rx's Medication Instructions Recorded Atorvastatin [Lipitor] 80 mg PO DAILY #90 tab 10/03/23 Clopidogrel [Plavix] 75 mg PO DAILY #90 tab 10/03/23 Ezetimibe [Zetia] 10 mg PO DAILY #90 tab 10/03/23 Metoprolol Tartrate [Lopressor] 25 mg PO BID #180 tab 10/03/23 Allergies Allergy/AdvReac Type Severity Reaction Status Date / Time No Known Allergies Allergy Verified 07/01/24 11:30 Review of Systems ROS Statement: Those systems with pertinent positive or pertinent negative responses have been documented in the HPI. ROS Other: All systems not noted in ROS Statement are negative. Past Medical History Past Medical History: Chest Pain / Angina, CVA/TIA, Hearing Disorder / Deafness, Hyperlipidemia, Hypertension, Liver Disease, Renal Disease Additional Past Medical History / Comment(s): severe wrist damage 07/2020, lower back L3-5 degeneration bulging discs, chest pain/angina w/ cardiac stent 10/02/23, current bilat. ear infection w/ antibiotics. "Possible mini stroke."-no residual effects. "Fatty liver.""I only have 1 kidney." History of Any Multi-Drug Resistant Organisms: None Reported Past Surgical History: Heart Catheterization With Stent Additional Past Surgical History / Comment(s): rt wrist arthroscopy. "Removed undersevelpoped kidney, never developed into a kidney." Past Anesthesia/Blood Transfusion Reactions: No Reported Reaction Additional Past Anesthesia/Blood Transfusion Reaction / Comment(s): No hx of blood transfusion to date. Date of Last Stent Placement:: 10/02/2023 Past Alcohol Use History: Rare Additional Past Alcohol Use History / Comment(s): quit 2022, 1ppk/day/decades, started smoking at age 14. 2 beers/month - Past Family History Father Family Medical History: No Reported History General Exam General appearance: alert, in no apparent distress Head exam: Present: atraumatic, normocephalic Eye exam: Present: normal appearance, PERRL ENT exam: Present: normal exam Neck exam: Present: normal inspection Respiratory exam: Present: normal lung sounds bilaterally. Absent: respiratory distress, wheezes Cardiovascular Exam: Present: normal rhythm, tachycardia GI/Abdominal exam: Present: soft. Absent: distended, tenderness, guarding Extremities exam: Present: normal inspection, normal capillary refill Neurological exam: Present: alert, oriented X3 Psychiatric exam: Present: normal affect, normal mood Skin exam: Present: warm, dry, intact Course Vital Signs 07/01/24 07/01/24 11:03 12:29 Temperature 97.8 F 98.1 F Pulse Rate 53 L 48 L Respiratory 18 16 Rate Blood Pressure 120/79 O2 Sat by Pulse 97 96 Oximetry Medical Decision Making - Medical Decision Making Was pt. sent in by a medical professional or institution (, PA, GARLAND MACHINE OPERATOR, urgent care, hospital, or fpc...) When possible be specific @ -Transfer from [facility] for cardiology consultation Did you speak to anyone other than the patient for history (EMS, parent, family, police, friend...)? What history was obtained from this source @ -No Did you review nursing and triage notes (agree or disagree)? Why? @ -I reviewed and agree with nursing and triage notes Were old charts reviewed (outside hosp., previous admission, EMS record, old EKG, old radiological studies, urgent care reports/EKG's, fpc records)? Report findings @ -No old charts were reviewed Differential Chest Pain: Stable Angina, Unstable Angina, STEMI, NSTEMI Aortic Dissection, Pneumothorax, Musculoskeletal, Esophageal Spasm GERD, Cholecystitis, Pancreatitis, Zoster, this is not meant to be an all-inclusive list. EKG interpreted by me (3pts min.). @Sinus bradycardia rate of 48, OR interval 207, QRS duration 104, QTc 388, no ST segment elevation. X-rays interpreted by me (1pt min.). @ -None done CT interpreted by me (1pt min.). @ -None done U/S interpreted by me (1pt. min.). @ -None done What testing was considered but not performed or refused? (CT, X-rays, U/S, labs)? Why? @ -None What meds were considered but not given or refused? Why? @ -None Did you discuss the management of the patient with other professionals (professionals i.e. , PA, GARLAND MACHINE OPERATOR, lab, RT, psych nurse, social welfare research worker, academic counselor, teacher, aircraft electronics technical officer, employment evaluator/case manager)? Give summary @ -Dr. Rosen Was smoking cessation discussed for >3mins.? @ -No Was critical care preformed (if so, how long)? @ yes 35 min Were there social determinants of health that impacted care today? How? (Homelessness, low income, unemployed, alcoholism, drug addiction, transportation, low edu. Level, literacy, decrease access to med. care, assisted, rehab)? @ -No Was there de-escalation of care discussed even if they declined (Discuss DNR or withdrawal of care, Hospice)? DNR status @ -No What co-morbidities impacted this encounter? (DM, HTN, Smoking, COPD, CAD, Cancer, CVA, ARF, Chemo, Hep., AIDS, mental health diagnosis, sleep apnea, morbid obesity)? @ -History of coronary artery disease, recent stenting Was patient admitted / discharged? Hospital course, mention meds given and route, prescriptions, significant lab abnormalities, going to OR and other pe rtinent info. @53-year-old male with coronary artery disease, recent stenting presents for evaluation of chest discomfort which has been present for the past several weeks but did worsen this morning. Patient was seen at [facility], had normal EKG, negative troponin but was sent for cardiology consultation. Patient had been started on heparin with concerns for unstable angina. Heparin continued in the emergency department. Repeat laboratory test including CBC, CMP and repeat troponin level has been ordered. Patient admitted to Dr. Rosen who is aware and cardiology is placed on consult. Undiagnosed new problem with uncertain prognosis? @ -No Drug Therapy requiring intensive monitoring for toxicity (Heparin, Nitro, Insulin, Cardizem)? @ -No Were any procedures done? @ -No Diagnosis/symptom? @ -Chest pain, unstable angina Acute, or Chronic, or Acute on Chronic? @ -[Acute Uncomplicated (without systemic symptoms) or Complicated (systemic symptoms)? @ -Default Side effects of treatment? @ -No Exacerbation, Progression, or Severe Exacerbation? @ -No Poses a threat to life or bodily function? How? (Chest pain, [place], [place], pneumonia, PE, COPD, DKA, ARF, appy, cholecystitis, CVA, Diverticulitis, Homicidal, Suicidal, threat to staff... and all critical care pts) @ -Yes, ACS - Lab Data Result diagrams: 07/01/24 11:20 07/01/24 11:20 Critical Care Time Critical Care Time: Yes Total Critical Care Time: 35 Disposition Clinical Impression: Chest pain, Unstable angina pectoris Disposition: ADMITTED IP TO THIS HOSP Condition: Stable Is patient prescribed a controlled substance at d/c from ED?: No Time of Disposition: 11:23
[2024-07-01 11:30] LABS: Basophils # (A) 0.1 k/uL (0-0.2); Basophils % (A) 1 %; Eosinophils # (A) 0.2 k/uL (0-0.7); Eosinophils % (A) 3 %; HCT 45.1 % (39.0-53.0); HGB 15.1 gm/dL (13.0-17.5); Lymphocytes % (A) 30 %; MCH 30.7 pg (25.0-35.0); MCHC 33.4 g/dL (31.0-37.0); Mean Platelet Volume 7.1; Monocytes # (A) 0.5 k/uL (0-1.0); Monocytes % (A) 8 %; Neutrophils # (A) 3.6 k/uL (1.3-7.7); Neutrophils % (A) 54 %; Platelet Count 199 k/uL (150-450); RDW 12.6 % (11.5-15.5); WBC 6.6 k/uL (3.8-10.6)
[2024-07-01] MEDS: HEPARIN SOD,PORK IN 0.45% NACL 25,000 UNIT in 0.45% NACL 1 250ML.BAG IV SCH (11:30)
[2024-07-01 11:40] LABS: ALT 44 U/L (4-49); AST 26 U/L (17-59); African American GFR (CKD) >90 (>60 ml/min/1.73 sqM); Albumin 3.8 g/dL (3.5-5.0); Alkaline Phosphatase 60 U/L (38-126); Anion Gap 6 mmol/L; Blood Urea Nitrogen 18 mg/dL (9-20); Calcium 8.8 mg/dL (8.4-10.2); Carbon Dioxide 21 mmol/L (22-30); Chloride 111 mmol/L (98-107); Glucose 107 mg/dL (74-99); Non-African American GFR(CKD) >90 (>60 ml/min/1.73 sqM); Potassium 4.5 mmol/L (3.5-5.1); Sodium 138 mmol/L (137-145); Total Bilirubin 0.5 mg/dL (0.2-1.3); Total Protein 6.3 g/dL (6.3-8.2)
[2024-07-01 11:49] LABS: INR 1.1 (<1.2); Partial Thromboplastin Time 93.9 sec (22.0-30.0); Prothrombin Time 11.7 sec (10.0-12.5)
[2024-07-01] MEDS: ALPRAZolam 1 MG TAB PO PRN (16:04)
[2024-07-01] MEDS: BACLOFEN 10 MG TAB PO PRN (16:04)
[2024-07-01] MEDS: traZODone HCL 100 MG TAB PO SCH (20:04)
[2024-07-01] MEDS: METOPROLOL TARTRATE 25 MG TAB PO SCH (20:04)
[2024-07-01] MEDS: HYDROcodone/APAP 5-325MG 1 EACH TAB PO PRN (20:09)
--- NOTE | 2024-07-01 21:01 | P.HPIM ---
History of Present Illness H&P Date: 07/01/24 Chief Complaint: Chest pain Pleasant 53-year-old patient who follows Dr. Chidi Campos. Chronic stable medical conditions include insomnia, herniated disc with lower back pain, intermittent constipation hypertension. CAD with stent proximal diagonal in October 2023. June 02, of this year patient had an abnormal stress test underwent a stent to mid LAD and also angioplasty. [employer] Dr. Weathers. Since patient's stent placement in May patient is continue to have left precordial pain. Does not radiate. No dizziness no lightheaded no perspiration. Somewhat constant. Patient is on a cardio workout program including elliptical and does it every day. He noticed last 24 hours the pain has become more severe. Decided to come in. Patient did have a follow-up appoint with Dr. Weathers after his stent which was unremarkable. Patient also had right hydronephrosis followed up with Dr. Dorantes did have a stent placed in the right ureter then later removed. Patient is otherwise physically very active. Review of systems: GEN.: None EYES: None HEENT: None NECK: None RESPIRATORY: None CARDIOVASCULAR: As above GASTROINTESTINAL: None GENITOURINARY: None MUSCULOSKELETAL: None LYMPHATICS: None HEMATOLOGICAL: None PSYCHIATRY: None NEUROLOGICAL: None Social history: Lives alone. Currently not working. 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 Averaged about a pack a day for 40 years. No alcohol. Physical examination: VITAL SIGNS: 97.9, 58, 16, 120 x 76, 98% room air GENERAL: Lying in bed comfortable EYES: Pupils equal. Conjunctiva chaim l. HEENT: External appearance of nose and ears normal, oral cavity grossly normal. NECK: JVD not raised; masses not palpable. HEART: First and second heart sounds are normal; no edema. LUNGS: Respiratory rate normal; clear to auscultation. ABDOMEN: Soft, nontender, liver spleen not palpable, no masses palpable. PSYCH: Alert and oriented x3; mood and affect chaim l. MUSCULOSKELETAL:No Clubbing/cyanosis;muscles-grossly intact. Some reproducible pain at the left costochondral junction. NEUROLOGICAL: Cranial nerves grossly intact; no facial asymmetry, power and sensation grossly intact. LYMPHATICS: No lymph nodes palpable in the axilla and neck INVESTIGATIONS, reviewed in the clinical context: July 01, 2024: White count 6.6 hemoglobin 15.1 platelets 199 sodium 138 pot assium 4.5 BUN 18 creatinine 0.82 Troponin I less than 0.012 x 2 EKG tracing personally reviewed by me-normal sinus rhythm. Rate 48 Assessment and plan: -Left precordial pain in a patient with known coronary artery disease. Patient had a initial stent in October 2023 with disease other vessels also. This 1st-1st diagonal. In May of this year patient had another stent to LAD. Pain seems to be rather constant. Patient is extremely active with a cardio workout. Patient has reproducible pain left costochondral junction: Likely costochondritis from excessive exercise and weight lifting -Possible unstable angina. With recent stenting to mid LAD. Patient may need a repeat nuclear stress test. Consult cardiology -CAD with prior stent to first diagonal and mid LAD -Left nephrectomy for prior renal cancer -Right hydronephrosis with a previous right ureteral stent Follow-up with Dr. Dorantes outpatient -Anxiety not otherwise specified Xanax -Hyperlipidemia Lipitor -Essential hypertension Amlodipine. Lopressor. -Chronic, left nephrectomy -Chronic insomnia Trazodone -Chronic i lower back pain from herniated disc Baclofen. [place]. -Full code Care was discussed with patient. Cardiology consulted. Will keep n.p.o. after midnight for stress test. Past Medical History Past Medical History: Chest Pain / Angina, CVA/TIA, Hearing Disorder / Deafness, Hyperlipidemia, Hypertension, Liver Disease, Renal Disease Additional Past Medical History / Comment(s): severe wrist damage 07/2020, lower back L3-5 degeneration bulging discs, chest pain/angina w/ cardiac stent 10/02/23, current bilat. ear infection w/ antibiotics. "Possible mini stroke."-no residual effects. "Fatty liver.""I only have 1 kidney." 2 cardiac stents 06/02/34. History of Any Multi-Drug Resistant Organisms: None Reported Past Surgical History: Heart Catheterization With Stent Additional Past Surgical History / Comment(s): rt wrist arthroscopy. "Removed undersevelpoped kidney, never developed into a kidney." Past Anesthesia/Blood Transfusion Reactions: No Reported Reaction Additional Past Anesthesia/Blood Transfusion Reaction / Comment(s): No hx of blood transfusion to date. Date of Last Stent Placement:: 10/02/2023 Past Psychological History: Anxiety Additional Psychological History / Comment(s): not currently Smoking Status: Former smoker Past Alcohol Use History: Rare Additional Past Alcohol Use History / Comment(s): quit 2022, 1ppk/day/decades, started smoking at age 14. 2 beers/month Past Drug Use History: None Reported - Past Family History Father Family Medical History: No Reported History Medications and Allergies Home Medications Medication Instructions Recorded Confirmed Type ALPRAZolam [Xanax] 2 mg PO BID 03/27/22 07/01/24 History amLODIPine 10 mg PO DAILY 03/27/22 07/01/24 History Baclofen [Lioresal] 20 mg PO BID PRN 10/01/23 07/01/24 History traZODone HCL 300 mg PO HS 10/01/23 07/01/24 History Atorvastatin [Lipitor] 80 mg PO DAILY #90 tab 10/03/23 07/01/24 Rx Clopidogrel [Plavix] 75 mg PO DAILY #90 tab 10/03/23 07/01/24 Rx Ezetimibe [Zetia] 10 mg PO DAILY #90 tab 10/03/23 07/01/24 Rx Metoprolol Tartrate [Lopressor] 25 mg PO BID #180 tab 10/03/23 07/01/24 Rx [place]-3/Dha/Epa/Fish Oil [Fish Oil 1 cap PO DAILY 11/30/23 07/01/24 History 1,000 mg Softgel] Linaclotide [Linzess] 145 mcg PO DAILY 05/30/24 07/01/24 History Multivitamins, Thera [Multivitamin 1 tab PO DAILY 05/30/24 07/01/24 History (formulary)] Aspirin EC [Ecotrin Low Dose] 81 mg PO DAILY 07/01/24 07/01/24 History Docusate [Colace] 100 mg PO DAILY PRN 07/01/24 07/01/24 History HYDROcodone/APAP 5-325MG [[place] 1 tab PO BID PRN 07/01/24 07/01/24 History 5-325] Tamsulosin [Flomax] 0.4 mg PO DAILY 07/01/24 07/01/24 History Allergies Allergy/AdvReac Type Severity Reaction Status Date / Time No Known Allergies Allergy Verified 07/01/24 11:30 Physical Exam Vitals: Vital Signs Temp Pulse Pulse Resp BP BP Pulse Ox 07/01/24 16:38 58 L 07/01/24 13:31 97.9 F 61 16 120/76 98 07/01/24 12:29 98.1 F 48 L 16 120/79 96 07/01/24 11:03 97.8 F 53 L 18 97 Intake and Output 07/01/24 07/01/24 07/01/24 06:59 14:59 22:59 Intake Total 31 118 Balance 31 118 Intake: Intake, IV Titration 31 Amount Heparin Sod,Pork in 0.45% 31 NaCl 25,000 unit In 0.45 % NaCl 1 250ml.bag @ 11. 603 UNITS/KG/HR 10 mls/hr IV .Q24H FAHEEM Rx#: [id number] Oral 118 Other: # Voids 1 Weight 86.183 kg Results CBC & Chem 7: 07/01/24 11:20 07/01/24 11:20 Labs: Abnormal Lab Results - Last 24 Hours (Table) 07/01/24 07/01/24 Range/Units 11:20 11:20 APTT 93.9 H (22.0-30.0) sec Chloride 111 H (98-107) mmol/L Carbon Dioxide 21 L (22-30) mmol/L Glucose 107 H (74-99) mg/dL Thrombosis Risk Factor Assmnt - Choose All That Apply Any of the Below Risk Factors Present?: Yes Each Factor Represents 1 point: Age 41-60 years Thrombosis Risk Factor Assessment Total Risk Factor Score: 1 Thrombosis Risk Factor Assessment Level: Low Risk
[2024-07-02] MEDS: ATORVASTATIN 80 MG TAB PO SCH (08:33)
[2024-07-02] MEDS: CLOPIDOGREL 75 MG TAB PO SCH (08:33)
[2024-07-02] MEDS: ASPIRIN 81 MG PO SCH (08:33)
[2024-07-02] MEDS: EZETIMIBE 10 MG TAB PO SCH (08:33)
[2024-07-02] MEDS: MULTIVITAMINS, THERA 1 EACH TAB PO SCH (08:33)
[2024-07-02] MEDS: amLODIPine 10 MG TAB PO SCH (08:33)
[2024-07-02] MEDS: TAMSULOSIN 0.4 MG CAP.ER.24H PO SCH (08:33)
--- NOTE | 2024-07-02 10:11 | P.CRDCN ---
History of Present Illness Consult date: 07/01/24 Consult reason: chest pain History of present illness: This is a 53-year-old male patient of Dr. Weathers with past medical history of coronary artery disease status post PCI of the LAD on 06/02/2024, hypertension, obesity status post significant weight loss, asymptomatic bradycardia. We have been asked to evaluate patient for chest pain. Patient gives history that he had heaviness type chest pain that started this morning. He states he has had it on and off since he had the stent placed in May and he thought the area was healing. He states the pain comes and goes but he never usually has it in the morning. This morning he was quite concerned because he he did have chest pain in the morning. It was on the left upper chest area. He took nitroglycerin that did not help. He initially went to [facility] and was trans ferred to [facility]. He states this type of pain is different from the chest pain that he experienced prior to his stent placement. He states morphine has helped the pain. He is usually quite active and lifts weights and does cardio exercise as well. He did the elliptical yesterday morning and did not have any chest pain at that time. He states his chest pain starts later in the day and progresses throughout the day and then stops at nighttime. Blood pressure 120/79, heart rate 48, pulse ox 96% on room air. Patient has been started on heparin drip. -EKG: Sinus rhythm with no acute ST changes x 2 -Chest x-ray: -Laboratory studies: CBC unremarkable. CO2 21, BUN 18 and creatinine 0.82. Troponin negative x 2. -Home cardiac medications: Amlodipine 10 mg daily, aspirin 81 mg daily, Lipitor 80 mg daily, Plavix 75 mg daily, Zetia 10 mg daily, Lopressor 25 mg twice daily, omega-3 daily. -Cardiac catheterization performed 06/02/2024 revealed 30 to 40% proximal LAD, subtotal occlusion of the diagonal 2, 70% mid LAD, 20 to 30% circumflex, 50 to 60% RCA stenosis. iFR RCA normal. FFR LAD abnormal. Patient underwent PCI with MASSIMO of the mid LAD. Patient to be on dual antiplatelet therapy with aspirin and Plavix for 6 months. -Echocardiogram performed in the office on 10/18/2023 revealed EF 55%, moderate left ventricular hypertrophy, mild mitral regurgitation, mild tricuspid regurgitation, PASP 23 mmHg. Review Of Systems: At the time of my exam: CONSTITUTIONAL: Denies fever or chills. HEENT: Denies blurred vision, vision changes, or eye pain. Denies hemoptysis CARDIOVASCULAR: Denies chest pain. Denies orthopnea. Denies PND. Denies palpitations RESPIRATORY: Denies shortness of breath. GASTROINTESTINAL: Denies abdominal pain. Denies nausea or vomiting. HEMATOLOGIC: Denies bleeding disorders. GENITOURINARY: Denies any blood in urine. SKIN: Denies puritis. Denies rash. Physical examination: Gen: This is a 53-year-old male in no acute distress. VS: reviewed HEENT: Head is atraumatic, normocephalic. Pupils equal, round. Sclerae is anicteric. NECK: Supple. No JVD. LUNGS: Clear to auscultation. No wheezes or rhonchi. No intercostal retractions. HEART: Regular rate and rhythm. No murmur. No chest wall tenderness. ABDOMEN: Soft No tenderness. EXTREMITIES: No pedal edema. No calf tenderness. NEUROLOGICAL: Patient is awake, alert and oriented x3. Assessment: Atypical chest pain, acute coronary syndrome to be ruled out History of coronary artery disease with PCI of the LAD on 06/02/2024 Hypertension Asymptomatic bradycardia Remote history of tobacco use and dependence Plan: Resume patient's home cardiac medications Discontinue heparin drip Schedule patient for stress echocardiogram in the morning Beta-jose to be held in the morning Further recommendations to follow based upon clinical course Thank you kindly for this consultation. Nurse practitioner note has been reviewed, I agree with documented findings and plan of care. Patient was seen and examined. Past Medical History Past Medical History: Chest Pain / Angina, CVA/TIA, Hearing Disorder / Deafness, Hyperlipidemia, Hypertension, Liver Disease, Renal Disease Additional Past Medical History / Comment(s): severe wrist damage 07/2020, lower back L3-5 degeneration bulging discs, chest pain/angina w/ cardiac stent 10/02/23, current bilat. ear infection w/ antibiotics. "Possible mini stroke."-no residual effects. "Fatty liver.""I only have 1 kidney." 2 cardiac stents 06/02/34. History of Any Multi-Drug Resistant Organisms: None Reported Past Surgical History: Heart Catheterization With Stent Additional Past Surgical History / Comment(s): rt wrist arthroscopy. "Removed undersevelpoped kidney, never developed into a kidney." Past Anesthesia/Blood Transfusion Reactions: No Reported Reaction Additional Past Anesthesia/Blood Transfusion Reaction / Comment(s): No hx of blood transfusion to date. Date of Last Stent Placement:: 10/02/2023 Past Psychological History: Anxiety Additional Psychological History / Comment(s): not currently Smoking Status: Former smoker Past Alcohol Use History: Rare Additional Past Alcohol Use History / Comment(s): quit 2022, 1ppk/day/decades, started smoking at age 14. 2 beers/month Past Drug Use History: None Reported - Past Family History Father Family Medical History: No Reported History Medications and Allergies Home Medications Medication Instructions Recorded Confirmed Type ALPRAZolam [Xanax] 2 mg PO BID 03/27/22 07/01/24 History amLODIPine 10 mg PO DAILY 03/27/22 07/01/24 History Baclofen [Lioresal] 20 mg PO BID PRN 10/01/23 07/01/24 History traZODone HCL 300 mg PO HS 10/01/23 07/01/24 History Atorvastatin [Lipitor] 80 mg PO DAILY #90 tab 10/03/23 07/01/24 Rx Clopidogrel [Plavix] 75 mg PO DAILY #90 tab 10/03/23 07/01/24 Rx Ezetimibe [Zetia] 10 mg PO DAILY #90 tab 10/03/23 07/01/24 Rx Metoprolol Tartrate [Lopressor] 25 mg PO BID #180 tab 10/03/23 07/01/24 Rx [place]-3/Dha/Epa/Fish Oil [Fish Oil 1 cap PO DAILY 11/30/23 07/01/24 History 1,000 mg Softgel] Linaclotide [Linzess] 145 mcg PO DAILY 05/30/24 07/01/24 History Multivitamins, Thera [Multivitamin 1 tab PO DAILY 05/30/24 07/01/24 History (formulary)] Aspirin EC [Ecotrin Low Dose] 81 mg PO DAILY 07/01/24 07/01/24 History Docusate [Colace] 100 mg PO DAILY PRN 07/01/24 07/01/24 History HYDROcodone/APAP 5-325MG [[place] 1 tab PO BID PRN 07/01/24 07/01/24 History 5-325] Tamsulosin [Flomax] 0.4 mg PO DAILY 07/01/24 07/01/24 History Allergies Allergy/AdvReac Type Severity Reaction Status Date / Time No Known Allergies Allergy Verified 07/01/24 11:30 Physical Exam Vitals: Vital Signs Temp Pulse Pulse Resp BP BP Pulse Ox 07/01/24 13:31 97.9 F 61 16 120/76 98 07/01/24 12:29 98.1 F 48 L 16 120/79 96 07/01/24 11:03 97.8 F 53 L 18 97 Intake and Output 06/30/24 07/01/24 07/01/24 22:59 06:59 14:59 Other: Weight 86.183 kg Results 07/01/24 11:20 07/01/24 11:20 Cardiac Enzymes 07/01/24 07/01/24 Range/Units 11:10 11:20 AST 26 (17-59) U/L Troponin I <0.012 (0.000-0.034) ng/mL Coagulation 07/01/24 Range/Units 11:20 PT 11.7 (10.0-12.5) sec APTT 93.9 H (22.0-30.0) sec CBC 07/01/24 Range/Units 11:20 WBC 6.6 (3.8-10.6) k/uL RBC 4.90 (4.30-5.90) m/uL Hgb 15.1 (13.0-17.5) gm/dL Hct 45.1 (39.0-53.0) % Plt Count 199 (150-450) k/uL Comprehensive Metabolic Panel 07/01/24 Range/Units 11:20 Sodium 138 (137-145) mmol/L Potassium 4.5 (3.5-5.1) mmol/L Chloride 111 H (98-107) mmol/L Carbon Dioxide 21 L (22-30) mmol/L BUN 18 (9-20) mg/dL Creatinine 0.82 (0.66-1.25) mg/dL Glucose 107 H (74-99) mg/dL Calcium 8.8 (8.4-10.2) mg/dL AST 26 (17-59) U/L ALT 44 (4-49) U/L Alkaline Phosphatase 60 (38-126) U/L Total Protein 6.3 (6.3-8.2) g/dL Albumin 3.8 (3.5-5.0) g/dL Current Medications Generic Name Dose Route Start Last Admin Trade Name Freq PRN Reason Stop Dose Admin Acetaminophen 650 mg 07/01/24 10:57 Acetaminophen Tab 325 Mg Tab PO Q6HR PRN Mild Pain or Fever > 100.5 Heparin Sodium (Porcine) 0 unit 07/01/24 11:05 Heparin Sodium 1,000 Un/Ml (10ml Vl) IV PER PROTOCOL PRN Low PTT Protocol Heparin Sodium/Sodium Chloride 250 mls @ 10 mls/hr 07/01/24 11:30 07/01/24 11:30 25,000 unit/ Sodium Chloride IV 11.603 units/kg/hr .Q24H FAHEEM 10 mls/hr Administration Protocol 11.603 UNITS/KG/HR Naloxone HCl 0.2 mg 07/01/24 10:57 Naloxone 0.4 Mg/Ml 1 Ml Vial IV Q2M PRN Opioid Reversal Intake and Output 06/30/24 07/01/24 07/01/24 22:59 06:59 14:59 Other: Weight 86.183 kg Patient Weight 07/02/24 06:59 Weight 86.183 kg 07/01/24 11:20 07/01/24 11:20
--- NOTE | 2024-07-02 10:13 | P.PN ---
Subjective Progress Note Date: 07/02/24 This is a 53-year-old male patient of Dr. Weathers with past medical history of coronary artery disease status post PCI of the LAD on 06/02/2024, hypertension, obesity status post significant weight loss, asymptomatic bradycardia. We have been asked to evaluate patient for chest pain. Patient gives history that he had heaviness type chest pain that started this morning. He states he has had it on and off since he had the stent placed in May and he thought the area was healing. He states the pain comes and goes but he never usually has it in the morning. This morning he was quite concerned because he he did have chest pain in the morning. It was on the left upper chest area. He took nitroglycerin that did not help. He initially went to [facility] and was transferred to [facility]. He states this type of pain is different from the chest pain that he experienced prior to his stent placement. He states morphine has helped the pain. He is usually quite active and lifts weights and does cardio exercise as well. He did the elliptical yesterday morning and did not have any chest pain at that time. He states his chest pain starts later in the day and progresses throughout the day and then stops at nighttime. Blood pressure 120/79, heart rate 48, pulse ox 96% on room air. Patient has been started on heparin drip. -EKG: Sinus rhythm with no acute ST changes x 2 -Chest x-ray: -Laboratory studies: CBC unremarkable. CO2 21, BUN 18 and creatinine 0.82. Troponin negative x 2. -Home cardiac medications: Amlodipine 10 mg daily, aspirin 81 mg daily, Lipitor 80 mg daily, Plavix 75 mg daily, Zetia 10 mg daily, Lopressor 25 mg twice daily, omega-3 daily. -Cardiac catheterization performed 06/02/2024 revealed 30 to 40% proximal LAD, subtotal occlusion of the diagonal 2, 70% mid LAD, 20 to 30% circumflex, 50 to 60% RCA stenosis. iFR RCA normal. FFR LAD abnormal. Patient underwent PCI with MASSIMO of the mid LAD. Patient to be on dual antiplatelet therapy with aspirin and Plavix for 6 months. -Echocardiogram performed in the office on 10/18/2023 revealed EF 55%, moderate left ventricular hypertrophy, mild mitral regurgitation, mild tricuspid regurgitation, PASP 23 mmHg. 4/2 Patient states he did have some chest pain when he got up and moved around this morning. He is scheduled for stress echocardiogram today. His second troponin was negative. Repeat EKG was done yesterday afternoon which showed no acute changes. Blood pressure 147/88, heart rate 65, pulse ox 98% on room air. Physical examination: Gen: This is a 53-year-old male in no acute distress. VS: reviewed HEENT: Head is atraumatic, normocephalic. Pupils equal, round. Sclerae is anic teric. NECK: Supple. No JVD. LUNGS: Clear to auscultation. No wheezes or rhonchi. No intercostal retractions. HEART: Regular rate and rhythm. No murmur. No chest wall tenderness. ABDOMEN: Soft No tenderness. EXTREMITIES: No pedal edema. No calf tenderness. NEUROLOGICAL: Patient is awake, alert and oriented x3. Assessment: Atypical chest pain, acute coronary syndrome to be ruled out History of coronary artery disease with PCI of the LAD on 06/02/2024 Hypertension Asymptomatic bradycardia Remote history of tobacco use and dependence Plan: Continue patient's home cardiac medications Schedule patient for stress echocardiogram today Beta-jose to be held in the morning Further recommendations to follow based upon clinical course If stress test is unremarkable, patient is cleared for discharge from cardiology perspective. Nurse practitioner note has been reviewed, I agree with documented findings and plan of care. Patient was seen and examined. Objective - Vital Signs Vital signs: Vital Signs Temp 97.5 F L 07/02/24 02:00 Pulse 76 07/02/24 02:00 Resp 17 07/02/24 02:00 BP 114/72 07/02/24 02:00 Pulse Ox 96 07/02/24 02:00 FiO2 Intake & Output 07/01/24 07/02/24 07/02/24 18:59 06:59 18:59 Intake Total 31 118 Balance 31 118 Weight 86.183 kg Intake: Intake, IV Titration 31 Amount Heparin Sod,Pork in 0.45% 31 NaCl 25,000 unit In 0.45 % NaCl 1 250ml.bag @ 11. 603 UNITS/KG/HR 10 mls/hr IV .Q24H FAHEEM Rx#: [id number] Oral 118 Other: Voiding Method Toilet # Voids 1 2 - Labs CBC & Chem 7: 07/01/24 11:20 07/01/24 11:20 Labs: Abnormal Lab Results - Last 24 Hours (Table) 07/01/24 07/01/24 Range/Units 11:20 11:20 APTT 93.9 H (22.0-30.0) sec Chloride 111 H (98-107) mmol/L Carbon Dioxide 21 L (22-30) mmol/L Glucose 107 H (74-99) mg/dL
--- NOTE | 2024-07-02 20:50 | P.PN ---
Progress Note - Text Progress Note Date: 07/02/24 Chief Complaint: Chest pain Pleasant 53-year-old patient who follows Dr. Chidi Campos. Chronic stable medical conditions include insomnia, herniated disc with lower back pain, intermittent constipation hypertension. CAD with stent proximal diagonal in October 2023. June 02, of this year patient had an abnormal stress test underwent a stent to mid LAD and also angioplasty. [employer] Team Lead Dr. Weathers. Since patient's stent placement in May patient is continue to have left precordial pain. Does not radiate. No dizziness no lightheaded no perspiration. Somewhat constant. Patient is on a cardio workout program including elliptical and does it every day. He noticed last 24 hours the pain has become more severe. Decided to come in. Patient did have a follow-up appoint with Dr. Weathers after his stent which was unremarkable. Patient also had right hydronephrosis followed up with Dr. Dorantes did have a stent placed in the right ureter then later removed. Patient is otherwise physically very active. July 02: Patient earlier today had a stress echocardiogram. Reproducible costochondral localized tenderness present. Pending stress test results. Social history: Lives alone. Currently not working. 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 Averaged about a pack a day for 40 years. No alcohol. Physical examination: VITAL SIGNS: 98.7, 63, 15, 120/73, 96% room air GENERAL: Propped up in bed comfortable EYES: Pupils equal. Conjunctiva chaim l. HEENT: External appearance of nose and ears normal, oral cavity grossly normal. NECK: JVD not raised; masses not palpable. HEART: First and second heart sounds are normal; no edema. LUNGS: Respiratory rate normal; clear to auscultation. ABDOMEN: Soft, nontender, liver spleen not palpable, no masses palpable. PSYCH: Alert and oriented x3; mood and affect chaim l. MUSCULOSKELETAL:No Clubbing/cyanosis;muscles-grossly intact. Some reproducible pain at the left costochondral junction. N INVESTIGATIONS, reviewed in the clinical context: July 01, 2024: White count 6.6 hemoglobin 15.1 platelets 199 sodium 138 potassium 4.5 BUN 18 creatinine 0.82 Troponin I less than 0.012 x 2 EKG tracing personally reviewed by me-normal sinus rhythm. Rate 48 Assessment and plan: -Left precordial pain in a patient with known coronary artery disease. Patient had a initial stent in October 2023 with disease other vessels also. This 1st-1st diagonal. In May of this year patient had another stent to LAD. Pain seems to be rather constant. Patient is extremely active with a cardio workout. Patient has reproducible pain left costochondral junction: Likely costochondrit is from excessive exercise and weight lifting -Possible unstable angina. With recent stenting to mid LAD. Stress echocardiogram: Results pending -CAD with prior stent to first diagonal and mid LAD -Left nephrectomy for prior renal cancer -Right hydronephrosis with a previous right ureteral stent Follow-up with Dr. Dorantes outpatient -Anxiety not otherwise specified Xanax -Hyperlipidemia Lipitor -Essential hypertension Amlodipine. Lopressor. -Chronic, left nephrectomy -Chronic insomnia Trazodone -Chronic i lower back pain from herniated disc Baclofen. [place]. -Full code Pending results of stress echocardiogram Past Medical History Past Medical History: Chest Pain / Angina, CVA/TIA, Hearing Disorder / Deafness, Hyperlipidemia, Hypertension, Liver Disease, Renal Disease Additional Past Medical History / Comment(s): severe wrist damage 07/2020, lower back L3-5 degeneration bulging discs, chest pain/angina w/ cardiac stent 10/02/23, current bilat. ear infection w/ antibiotics. "Possible mini stroke."-no residual effects. "Fatty liver.""I only have 1 kidney." 2 cardiac stents 06/02/34. History of Any Multi-Drug Resistant Organisms: None Reported Past Surgical History: Heart Catheterization With Stent Additional Past Surgical History / Comment(s): rt wrist arthroscopy. "Removed undersevelpoped kidney, never developed into a kidney." Past Anesthesia/Blood Transfusion Reactions: No Reported Reaction Additional Past Anesthesia/Blood Transfusion Reaction / Comment(s): No hx of blood transfusion to date. Date of Last Stent Placement:: 10/02/2023 Past Psychological History: Anxiety Additional Psychological History / Comment(s): not currently Smoking Status: Former smoker Past Alcohol Use History: Rare Additional Past Alcohol Use History / Comment(s): quit 2022, 1ppk/day/decades, started smoking at age 14. 2 beers/month Past Drug Use History: None Reported
[2024-07-03 02:31] VITALS: TEMP 97.6
--- NOTE | 2024-07-03 07:46 | CA ---
Stress Echo Report Carlton Shine Age: 53 Gender: M : 1970 Exam Date: 07/02/2024 11:28 Exam Location: [facility] Ht (in): 67 Wt (lb): 190 Ordering Physician: Vika Smith Referring Physician: [id number] Diathermy Equipment Repairer: KEKE Technologist Procedure CPT: Indication: Chest Pain ICD-9 Codes: Rhythm: Patient History: CP, HTN, HIGH CHOL, FEMILY HX, TOB, PRIOR CATH 2 PTCA. Cardiac Medications: SEE CHART,,,,, Medications in past 24 hours: Contrast: Stress Results Protocol: Giles Total dose(mL): Exercise Duration (min:sec): Max ST Depression (mm): Angina Score: Carver Score: METS: 10.7 Resting HR: 76 Resting BP: 121 / 83 Peak HR: 152 Peak BP: 198 / 66 Max Predicted HR: 165 92 % Max Predicted HR Target HR: 140 Double Product: 33224 Stress Summary: BP Response: Reason for Termination: MAX EXERTION/TARGET HR Cardiac Symptoms: CHEST PAIN ECG Analysis Resting ECG: Stress ECG: Arrhythmia: Echo Analysis Resting Echo: Peak Echo Analysis: MEASUREMENTS (Male/Female) Normal Values CONCLUSIONS Indication: Chest pain, known CAD status post stenting recently Good exercise capacity on a Giles protocol Normal heart rate and blood pressure response No ECG evidence for ischemia No echocardiographic evidence for ischemia Dr. Bebeto Ward MD (Electronically Signed) Final Date: 03 July 2024 07:45
[2024-07-03 08:41] VITALS: BP 125/84; PULSE 68; RESP 17
[2024-07-03] MEDS: COLCHICINE 0.6 MG EACH PO SCH (08:49)
--- NOTE | 2024-07-03 10:03 | P.PN ---
Subjective Progress Note Date: 07/03/24 This is a 53-year-old male patient of Dr. Weathers with past medical history of coronary artery disease status post PCI of the LAD on 06/02/2024, hypertension, obesity status post significant weight loss, asymptomatic bradycardia. We have been asked to evaluate patient for chest pain. Patient gives history that he had heaviness type chest pain that started this morning. He states he has had it on and off since he had the stent placed in May and he thought the area was healing. He states the pain comes and goes but he never usually has it in the morning. This morning he was quite concerned because he he did have chest pain in the morning. It was on the left upper chest area. He took nitroglycerin that did not help. He initially went to [facility] and was transferred to [facility]. He states this type of pain is different from the chest pain that he experienced prior to his stent placement. He states morphine has helped the pain. He is usually quite active and lifts weights and does cardio exercise as well. He did the elliptical yesterday morning and did not have any chest pain at that time. He states his chest pain starts later in the day and progresses throughout the day and then stops at nighttime. Blood pressure 120/79, heart rate 48, pulse ox 96% on room air. Patient has been started on heparin drip. -EKG: Sinus rhythm with no acute ST changes x 2 -Chest x-ray: -Laboratory studies: CBC unremarkable. CO2 21, BUN 18 and creatinine 0.82. Troponin negative x 2. -Home cardiac medications: Amlodipine 10 mg daily, aspirin 81 mg daily, Lipitor 80 mg daily, Plavix 75 mg daily, Zetia 10 mg daily, Lopressor 25 mg twice daily, omega-3 daily. -Cardiac catheterization performed 06/02/2024 revealed 30 to 40% proximal LAD, subtotal occlusion of the diagonal 2, 70% mid LAD, 20 to 30% circumflex, 50 to 60% RCA stenosis. iFR RCA normal. FFR LAD abnormal. Patient underwent PCI with MASSIMO of the mid LAD. Patient to be on dual antiplatelet therapy with aspirin and Plavix for 6 months. -Echocardiogram performed in the office on 10/18/2023 revealed EF 55%, moderate left ventricular hypertrophy, mild mitral regurgitation, mild tricuspid regurgitation, PASP 23 mmHg. 4/2 Patient states he did have some chest pain when he got up and moved around this morning. He is scheduled for stress echocardiogram today. His second troponin was negative. Repeat EKG was done yesterday afternoon which showed no acute changes. Blood pressure 147/88, heart rate 65, pulse ox 98% on room air. 12/03 Patient seen and examined. He still having some chest pain same as before. Yesterday, he underwent stress echocardiogram which revealed good exercise capacity on Giles protocol. Normal heart rate and blood pressure response. No EKG evidence of ischemia. No echocardiographic evidence of ischemia. Physical examination: Gen: This is a 53-year-old male in no acute distress. VS: reviewed HEENT: Head is atraumatic, normocephalic. Pupils equal, round. Sclerae is anicteric. NECK: Supple. No JVD. LUNGS: Clear to auscultation. No wheezes or rhonchi. No intercostal retractions. HEART: Regular rate and rhythm. No murmur. No chest wall tenderness. ABDOMEN: Soft No tenderness. EXTREMITIES: No pedal edema. No calf tenderness. NEUROLOGICAL: Patient is awake, alert and oriented x3. Assessment: Atypical chest pain, acute coronary syndrome Ruled out History of coronary artery disease with PCI of the LAD on 06/02/2024 Hypertension Asymptomatic bradycardia Remote history of tobacco use and dependence Plan: Continue patient's home cardiac medications Patient is cleared for discharge from cardiology perspective. He may follow-up with Dr. Weathers in 2 weeks. Nurse practitioner note has been reviewed, I agree with documented findings and plan of care. Patient was seen and examined. Objective - Vital Signs Vital signs: Vital Signs Temp 97.6 F 07/03/24 02:13 Pulse 66 07/03/24 02:13 Resp 15 07/03/24 02:13 BP 117/73 07/03/24 02:13 Pulse Ox 97 07/03/24 02:13 FiO2 Intake & Output 07/02/24 07/03/24 07/03/24 18:59 06:59 18:59 Intake Total 339 Balance 339 Intake: Oral 339 Other: Voiding Method Toilet Toilet # Voids 2 3 - Labs CBC & Chem 7: 07/01/24 11:20 07/01/24 11:20
--- NOTE | 2024-07-03 17:24 | P.DS ---
Providers Date of admission: 07/01/24 10:59 Expected date of discharge: 07/03/24 Attending physician: Ervin Rosen Consults: 07/01/24 10:57 Consult Physician Routine Consulting Provider: Rick Weathers Consult Reason/Comments: CP Do you want consulting provider notified?: Yes Primary care physician: [facility] Course: Chief Complaint: Chest pain Pleasant 53-year-old patient who follows Dr. Chidi Campos. Chronic stable medical conditions include insomnia, herniated disc with lower back pain, intermittent constipation hypertension. CAD with stent proximal diagonal in October 2023. June 02, of this year patient had an abnormal stress test underwent a stent to mid LAD and also angioplasty. Deployment Engineer Dr. Weathers. Since patient's stent placement in May patient is continue to have left precordial pain. Does not radiate. No dizziness no lightheaded no perspiration. Somewhat constant. Patient is on a cardio workout program including elliptical and does it every day. He noticed last 24 hours the pain has become more severe. Decided to come in. Patient did have a follow-up appoint with Dr. Weathers aft er his stent which was unremarkable. Patient also had right hydronephrosis followed up with Dr. Dorantes did have a stent placed in the right ureter then later removed. Patient is otherwise physically very active. July 02: Patient earlier today had a stress echocardiogram. Reproducible costochondral localized tenderness present. Pending stress test results. July 03: Stress echocardiogram negative. Pain felt to be costochondritis. Cleared by cardiology. Social history: Lives alone. Currently not working. 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 Averaged about a pack a day for 40 years. No alcohol. Physical examination: VITAL SIGNS: 97.6, 68, 17, 04/26/1983, 96% room air GENERAL: Sitting up, comfortable EYES: Pupils equal. Conjunctiva chaim l. HEENT: External appearance of nose and ears normal, oral cavity grossly normal. NECK: JVD not raised; masses not palpable. HEART: First and second heart sounds are normal; no edema. LUNGS: Respiratory rate normal; clear to auscultation. ABDOMEN: Soft, nontender, liver spleen not palpable, no masses palpable. PSYCH: Alert and oriented x3; mood and affect chaim l. MUSCULOSKELETAL:No Clubbing/cyanosis;muscles-grossly intact. reproducible pain at the left costochondral junction. N INVESTIGATIONS, reviewed in the clinical context: Stress echocardiogram: Negative July 01, 2024: White count 6.6 hemoglobin 15.1 platelets 199 sodium 138 potassium 4.5 BUN 18 creatinine 0.82 Troponin I less than 0.012 x 2 EKG tracing personally reviewed by me-normal sinus rhythm. Rate 48 Assessment and plan: -Left precordial pain in a patient with known coronary artery disease. Patient had a initial stent in October 2023 with disease other vessels also. This - diagonal. In May of this year patient had another stent to LAD. Pain seems to be rather constant. Patient is extremely active with a cardio workout. Patient has reproducible pain left costochondral junction: Likely costochondritis from excessive exercise and weight lifting Negative stress echocardiogram -CAD with prior stent to first diagonal and mid LAD -Left nephrectomy for prior renal cancer -Right hydronephrosis with a previous right ureteral stent Follow-up with Dr. Dorantes outpatient -Anxiety not otherwise specified Xanax -Hyperlipidemia Lipitor -Essential hypertension Amlodipine. Lopressor. -Chronic, left nephrectomy -Chronic insomnia Trazodone -Chronic i lower back pain from herniated disc Baclofen. [place]. -Full code Position: Home Past Medical History Past Medical History: Chest Pain / Angina, CVA/TIA, Hearing Disorder / Deafness, Hyperlipidemia, Hypertension, Liver Disease, Renal Disease Additional Past Medical History / Comment(s): severe wrist damage 07/2020, lower back L3-5 degeneration bulging discs, chest pain/angina w/ cardiac stent 10/02/23, current bilat. ear infection w/ antibiotics. "Possible mini stroke."-no residual effects. "Fatty liver.""I only have 1 kidney." 2 cardiac stents 06/02/34. History of Any Multi-Drug Resistant Organisms: None Reported Past Surgical History: Heart Catheterization With Stent Additional Past Surgical History / Comment(s): rt wrist arthroscopy. "Removed undersevelpoped kidney, never developed into a kidney." Past Anesthesia/Blood Transfusion Reactions: No Reported Reaction Additional Past Anesthesia/Blood Transfusion Reaction / Comment(s): No hx of blood transfusion to date. Date of Last Stent Placement:: 10/02/2023 Past Psychological History: Anxiety Additional Psychological History / Comment(s): not currently Smoking Status: Former smoker Past Alcohol Use History: Rare Additional Past Alcohol Use History / Comment(s): quit 2022, 1ppk/day/decades, started smoking at age 14. 2 beers/month Past Drug Use History: None Reported Patient Condition at Discharge: Stable Plan - Discharge Summary New Discharge Prescriptions: Continue Baclofen [Lioresal] 20 mg PO BID PRN PRN Reason: Muscle Spasm Atorvastatin [Lipitor] 80 mg PO DAILY #90 tab Metoprolol Tartrate [Lopressor] 25 mg PO BID #180 tab Clopidogrel [Plavix] 75 mg PO DAILY #90 tab Ezetimibe [Zetia] 10 mg PO DAILY #90 tab Kim-3/Dha/Epa/Fish Oil [Fish Oil 1,000 mg Softgel] 1 cap PO DAILY Aspirin EC [Ecotrin Low Dose] 81 mg PO DAILY Tamsulosin [Flomax] 0.4 mg PO DAILY amLODIPine 10 mg PO DAILY ALPRAZolam [Xanax] 2 mg PO BID traZODone HCL 300 mg PO HS Linaclotide [Linzess] 145 mcg PO DAILY Multivitamins, Thera [Multivitamin (formulary)] 1 tab PO DAILY Docusate [Colace] 100 mg PO DAILY PRN PRN Reason: Constipation HYDROcodone/APAP 5-325MG [[place] 5-325] 1 tab PO BID PRN PRN Reason: Pain Discharge Medication List ALPRAZolam [Xanax] 2 mg PO BID 03/27/22 [History] amLODIPine 10 mg PO DAILY 03/27/22 [History] Baclofen [Lioresal] 20 mg PO BID PRN 10/01/23 [History] traZODone HCL 300 mg PO HS 10/01/23 [History] Atorvastatin [Lipitor] 80 mg PO DAILY #90 tab 10/03/23 [Rx] Clopidogrel [Plavix] 75 mg PO DAILY #90 tab 10/03/23 [Rx] Ezetimibe [Zetia] 10 mg PO DAILY #90 tab 10/03/23 [Rx] Metoprolol Tartrate [Lopressor] 25 mg PO BID #180 tab 10/03/23 [Rx] Kim-3/Dha/Epa/Fish Oil [Fish Oil 1,000 mg Softgel] 1 cap PO DAILY 11/30/23 [History] Linaclotide [Linzess] 145 mcg PO DAILY 05/30/24 [History] Multivitamins, Thera [Multivitamin (formulary)] 1 tab PO DAILY 05/30/24 [History] Aspirin EC [Ecotrin Low Dose] 81 mg PO DAILY 07/01/24 [History] Docusate [Colace] 100 mg PO DAILY PRN 07/01/24 [History] HYDROcodone/APAP 5-325MG [[place] 5-325] 1 tab PO BID PRN 07/01/24 [History] Tamsulosin [Flomax] 0.4 mg PO DAILY 07/01/24 [History] Follow up Appointment(s)/Referral(s): Rick Weathers DO [STAFF PHYSICIAN] - 2 Weeks Chidi Campos MD [Primary Care Provider] - 1-2 days Discharge Disposition: HOME SELF-CARE
== END 2024-07-03 10:35 | disposition home or self-care (01) ==
LOC: EC 10:56 → 6NMEDSUR 10:59
PROVIDERS: ADMIT Hospitalist; ATTEND Hospitalist
DX: R07.2 Precordial pain (principal); R07.89 Other chest pain; I25.10 Atherosclerotic heart disease of native coronary artery without angina pectoris; I11.9 Hypertensive heart disease without heart failure; E78.5 Hyperlipidemia, unspecified; R00.1 Bradycardia, unspecified; F51.04 Psychophysiologic insomnia; G89.29 Other chronic pain; M51.26 Other intervertebral disc displacement, lumbar region; N13.30 Unspecified hydronephrosis; F41.9 Anxiety disorder, unspecified; K59.00 Constipation, unspecified; Z79.02 Long term (current) use of antithrombotics/antiplatelets; Z79.82 Long term (current) use of aspirin; Z79.899 Other long term (current) drug therapy; Z90.5 Acquired absence of kidney; Z85.528 Personal history of other malignant neoplasm of kidney; Z95.5 Presence of coronary angioplasty implant and graft; Z87.891 Personal history of nicotine dependence
CPT/HCPCS: 96366 ×2; 96365; 99291; 36415; 93351; 80053; 84484; 85025; 85610; 85730; G0378 ×3; J1644

== ENCOUNTER → 2024-07-15 | Outpatient (CLI) | payer MEDICARE, OTHER ==
[2024-07-15 15:24] LABS: ALT 35 U/L (10-49); AST 30 U/L (14-35); Chol/HDL Ratio 1.76 Ratio; VLDL Calculation 5.96 mg/dL (5.00-40.00)
== END | disposition home or self-care (01) ==
LOC: LABWHC1 10:53
PROVIDERS: ATTEND Nurse Practitioner Acute Care
DX: E78.2 Mixed hyperlipidemia (principal)
CPT/HCPCS: 36415; 80061; 84450; 84460